=== PATIENT | male | born 1955 | race Caucasian/White ===

== ENCOUNTER 2018-08-14 09:01 | Observation (INO) | payer OTHER, SELFPAY ==
[2018-08-14] VITALS (13 sets, daily range): BP systolic 127–144; BP diastolic 65–80; PULSE 79–99; RESP 16–20; TEMP 36.9–37.9; O2SAT 94–99; BMI 36.8
--- NOTE | 2018-08-14 09:10 | ED_ITS ---
HPI - Extremity Problem General Chief complaint: Extremity Problem,Nontraumatic Stated complaint: redness,pain,swelling rt leg, pt states chills Time Seen by Provider: 08/14/18 09:03 Source: patient Mode of arrival: ambulatory Limitations: no limitations History of Present Illness HPI Narrative: Patient is a 63-year-old male who presents with all right leg pain. It has been ongoing for the last 4 days progressively getting worse. Currently low-grade fever in the ED. Pain in the legs progressively getting worse he has rigors in the ED and cannot get warm. He also has a history of psoriasis and diabetes Related Data Home Medications Medication Instructions Recorded Confirmed allopurinol 300 mg PO QDAY #0 12/29/10 08/14/18 ramipril 10 mg PO BID #0 09/17/11 08/14/18 albuterol sulfate 1 puff INHALATION Q4-6H PRN 08/14/18 08/14/18 carvedilol 12.5 mg PO BID 08/14/18 08/14/18 colchicine 0.6 mg PO DAILY 08/14/18 08/14/18 furosemide 20 mg PO DAILY 08/14/18 08/14/18 glipizide 5 mg PO BID 08/14/18 08/14/18 metformin 500 mg PO BID 08/14/18 08/14/18 Allergies Allergy/AdvReac Type Severity Reaction Status Date / Time beeswax Allergy Severe ANAPHYLAXIS Verified 08/14/18 09:08 codeine Allergy Intermediate HIVES, Verified 08/14/18 09:08 SWELLING Review of Systems Review of Systems All systems reviewed & are unremarkable except as noted in HPI and below Constitutional Reports body ache(s), Reports fever(s) and Denies frequent falls ENT Ears, Nose, Mouth, and Throat: Denies change in voice, Denies dizziness, Denies neck pain and Denies sore throat Cardiovascular Denies chest pain, Denies irregular heart rhythm, Denies lightheadedness, Denies palpitations, Denies dyspnea, Denies dyspnea on exertion and Denies orthopnea Respiratory Denies cough, Denies dyspnea, Denies dyspnea on exertion and Denies wheezing Gastrointestinal Gastrointestinal: Denies abdominal pain, Denies change in bowel habits, Denies diarrhea, Denies nausea and Denies vomiting Musculoskeletal Reports back pain (Chronic), Denies neck pain and Denies numbness Integumentary/Breasts Reports as per HPI, Reports dry skin and Reports erythema Neurologic Denies behavioral changes, Denies confusion, Denies dizziness, Denies frequent falls and Denies numbness Psychiatric Denies behavioral changes and Denies confusion Endocrine Denies palpitations Allergic/Immunologic Denies wheezing PFSH Medical History Diabetes (Chronic) Hyperlipidemia (Chronic) Hypertension (Chronic) Hypothyroid (Chronic) Psoriasis (Chronic) Social History marital status: Smoking Status: Never smoker Exam Initial Vital Signs Initial Vital Signs: Vital Signs Temperature 100.3 F H 08/14/18 09:08 Pulse Rate 99 H 08/14/18 09:08 Respiratory Rate 16 08/14/18 09:08 Blood Pressure 138/80 08/14/18 09:08 Pulse Oximetry 98 08/14/18 09:08 Const General: cooperative and No acute distress Nutritional Appearance: overweight Orientation: alert, awake and oriented x3 Eyes General: appearance normal, both eyes and all related structures Neck Neck: normal visual inspection and full ROM Chest Chest: normal inspection of the chest Resp Effort & Inspection: normal respiratory effort Auscultation: clear to auscultation bilaterally, no rales, no rhonchi and no wheezes Cardio Rate: regular rate Rhythm: regular rhythm Heart Sounds: S1 normal and S2 normal GI Palpation: soft, No firm and No tender Skin General: erythema and warm Other: Sore ice packs noted on both lower extremities however the right 1 is erythematous. He actually is streaking going above the knee into the sun. Non circumferential Neuro General: alert, oriented x3, gait normal and no focal motor deficits Speech: speech normal Extrem General: full ROM, no clubbing, cyanosis or edema, no pedal edema and no calf tenderness Course Orders Ordered: ED Orders 08/14/18 09:15 Blood Culture Stat Complete Blood Count AUTO DIFF Stat Comprehensive Metabolic Panel Stat Lactate (Lactic Acid) Stat Partial Thromboplastin Time Stat Procalcitonin Stat Prothrombin Time INR Stat 08/14/18 10:36 Education, smoking cessation ONGOING 08/14/18 10:40 Consult to Discharge Planning Routine Consult to Occupational Therapy Evaluate & Treat Consult to Physical Therapy Evaluate & Treat 08/15/18 05:00 Complete Blood Count AUTO DIFF DAILY Comprehensive Metabolic Panel DAILY 08/16/18 05:00 Complete Blood Count AUTO DIFF DAILY Comprehensive Metabolic Panel DAILY 08/17/18 05:00 Complete Blood Count AUTO DIFF DAILY Comprehensive Metabolic Panel DAILY Acetaminophen (Tylenol) 650 mg PO Q6HR PRN PRN Reason: As Needed for Fever/Mild Pain Hydrocodone Bitart/Acetaminophen ([place] 5/325) 1 tab PO Q4HR PRN PRN Reason: Pain, Moderate (4-6) Bisacodyl (Dulcolax) 10 mg TN DAILY PRN PRN Reason: Constipation Calcium Carbonate (Tums) 1,000 mg PO Q4HR PRN PRN Reason: Dyspepsia Heparin Sodium (Porcine) (Heparin) 5,000 unit SUBCUT BID ZOE Sodium Chloride (Normal Saline 0.9%) 1,000 mls @ 200 mls/hr IV CONT ZOE Last Infusion: 08/14/18 11:21 Dose: 0 mls/hr Admin: 08/14/18 09:26 Dose: 200 mls/hr Ondansetron HCl (Zofran) 4 mg IV Q8HR PRN PRN Reason: Nausea And Vomiting Pantoprazole Sodium (Protonix) 20 mg PO 0600 [facility] Discontinued Medications Acetaminophen (Tylenol) 650 mg PO NOW ONE Stop: 08/14/18 09:52 Last Admin: 08/14/18 10:17 Dose: 650 mg Vancomycin HCl 1,500 mg/ (Sodium Chloride) 500 mls @ 333.333 mls/hr IV NOW ONE Stop: 08/14/18 09:37 Last Admin: 08/14/18 11:21 Dose: 333.333 mls/hr Ceftriaxone Sodium/Dextrose (Rocephin) 1 gm in 50 mls @ 100 mls/hr IV NOW ONE Stop: 08/14/18 10:05 Last Infusion: 08/14/18 11:20 Dose: 0 mls/hr Admin: 08/14/18 09:54 Dose: 100 mls/hr Vital Signs - 8 hr 08/14/18 09:08 08/14/18 10:17 08/14/18 11:16 Temperature 100.3 F H 100.3 F H Pulse Rate 99 H 96 H Respiratory Rate 16 20 Blood Pressure 138/80 127/67 Pulse Oximetry 98 95 08/14/18 11:29 Temperature 99.2 F Pulse Rate Respiratory Rate Blood Pressure Pulse Oximetry MDM - Extremity (Nontraumatic) Lab Data Attestation: I reviewed the patient's lab results. Result diagrams: 08/14/18 09:15 08/14/18 09:15 Lab Results 08/14/1818 08/14/18 Range/Units 09:15 09:15 09:15 WBC 13.5 H (4.5-11.0) X10^3/uL RBC 4.42 L (4.5-5.9) X10^6/uL Hgb 14.3 (13.5-17.5) g/dL Hct 42.7 (41-53) % MCV 96.5 (80-100) fL MCH 32.2 (26-34) PG MCHC 33.4 (30-36) % RDW 14.9 H (11.6-14.8) % Plt Count 168 (150-400) X10^3/uL Neut % (Auto) 84.3 H (50-75) % Lymph % (Auto) 5.6 L (25-40) % [place] % (Auto) 9.0 (3-14) % Eos % (Auto) 0.6 L (2-4) % Baso % (Auto) 0.5 (0-2) % Neut # (Auto) 38545 H (4028-6644) /uL PT 12.8 H (10.1-12.7) SECONDS INR 1.1 (0.9-1.3) APTT 31 (26.4-36.2) SECONDS Sodium (137-145) mmol/L Potassium (3.4-5.1) mmol/L Chloride (98-107) mmol/L Carbon Dioxide (22-32) mmol/L BUN (9-20) mg/dL Creatinine (0.66-1.25) mg/dL Estimated GFR (>60) mL/min BUN/Creatinine Ratio (6-22) Glucose (80-110) mg/dL Lactate (0.7-2.1) mmol/L Calcium (8.4-10.2) mg/dL Total Bilirubin (0.2-1.3) mg/dL AST (17-59) IU/L ALT (21-72) IU/L Alkaline Phosphatase (38-126) U/L Total Protein (6.3-8.2) g/dL Albumin (3.5-5.0) g/dL Globulin (1.7-4.1) g/dL Albumin/Globulin Ratio (1.0-2.8) Procalcitonin 0.07 (<0.5) ng/mL 08/14/18 08/14/18 Range/Units 09:15 09:15 WBC (4.5-11.0) X10^3/uL RBC (4.5-5.9) X10^6/uL Hgb (13.5-17.5) g/dL Hct (41-53) % MCV (80-100) fL MCH (26-34) PG MCHC (30-36) % RDW (11.6-14.8) % Plt Count (150-400) X10^3/uL Neut % (Auto) (50-75) % Lymph % (Auto) (25-40) % Stafford % (Auto) (3-14) % Eos % (Auto) (2-4) % Baso % (Auto) (0-2) % Neut # (Auto) (0226-2306) /uL PT (10.1-12.7) SECONDS INR (0.9-1.3) APTT (26.4-36.2) SECONDS Sodium 138 (137-145) mmol/L Potassium 4.3 (3.4-5.1) mmol/L Chloride 97 L (98-107) mmol/L Carbon Dioxide 26 (22-32) mmol/L BUN 16 (9-20) mg/dL Creatinine 1.20 (0.66-1.25) mg/dL Estimated GFR > 60.0 (>60) mL/min BUN/Creatinine Ratio 13.3 (6-22) Glucose 178 H (80-110) mg/dL Lactate 2.6 H (0.7-2.1) mmol/L Calcium 9.9 (8.4-10.2) mg/dL Total Bilirubin 1.7 H (0.2-1.3) mg/dL AST 24 (17-59) IU/L ALT 25 (21-72) IU/L Alkaline Phosphatase 62 (38-126) U/L Total Protein 8.0 (6.3-8.2) g/dL Albumin 4.7 (3.5-5.0) g/dL Globulin 3.3 (1.7-4.1) g/dL Albumin/Globulin Ratio 1.4 (1.0-2.8) Procalcitonin (<0.5) ng/mL MDM Narrative Medical decision making narrative: Patient's multiple comorbidities he also has streaking of his right leg concerning for worsening infection. Mild leukocytosis and slightly elevated lactic acid at 2.6. Empirically given Rocephin and vancomycin no history of MRSA, or recent hospitalizations. Patient has been admitted in the past multiple years ago for cellulitis has accepted Discharge Plan Departure Patient Disposition: Admitted As Inpatient Clinical Impression: Cellulitis of leg, right Discharge Date/Time: 08/14/18 11:30 Interventions: ED Discharge Assessment Last Done: 08/14/18 11:16 Admit Date/Time: 08/14/18 10:28 Admit Provider: Prashant Shields
[2018-08-14] MEDS: SODIUM CHLORIDE 0.9% 1,000 ML 200 ML IV (09:26)
[2018-08-14 09:31] LABS: Add Manual Diff / Slide Review NO; Basophils Percent Auto 0.5 % (0-2); Eosinophils Percent Auto 0.6 % (2-4); Hematocrit 42.7 % (41-53); Hemoglobin 14.3 g/dL (13.5-17.5); Lymphocytes Percent Auto 5.6 % (25-40); Mean Corpuscular HGB Conc 33.4 % (30-36); Mean Corpuscular Hemoglobin 32.2 PG (26-34); Mean Corpuscular Volume 96.5 fL (80-100); Neutrophils Absolute Auto 11400 /uL (3000-5900); Neutrophils Percent Auto 84.3 % (50-75); Platelet Count 168 X10^3/uL (150-400); Red Blood Cell Count 4.42 X10^6/uL (4.5-5.9); Red Cell Distribution Width 14.9 % (11.6-14.8); White Blood Cell Count 13.5 X10^3/uL (4.5-11.0)
[2018-08-14 09:37] LABS: INR 1.1 (0.9-1.3); Prothrombin Time 12.8 SECONDS (10.1-12.7)
[2018-08-14 09:40] LABS: PTT Partial Thromboplastin Tim 31 SECONDS (26.4-36.2)
[2018-08-14 09:46] LABS: Alanine Aminotransferase 25 IU/L (21-72); Albumin 4.7 g/dL (3.5-5.0); Albumin Globulin Ratio 1.4 (1.0-2.8); Alkaline Phosphatase 62 U/L (38-126); Aspartate Aminotransferase 24 IU/L (17-59); BUN Creatinine Ratio 13.3 (6-22); Bilirubin Total 1.7 mg/dL (0.2-1.3); Blood Urea Nitrogen 16 mg/dL (9-20); Calcium 9.9 mg/dL (8.4-10.2); Carbon Dioxide 26 mmol/L (22-32); Chloride 97 mmol/L (98-107); Estimated Glomerular Filt Rate > 60.0 mL/min (>60); Globulin 3.3 g/dL (1.7-4.1); Glucose 178 mg/dL (80-110); HEMOLYSIS < 15 (0-50); Potassium 4.3 mmol/L (3.4-5.1); Sodium 138 mmol/L (137-145)
[2018-08-14 09:47] LABS: Lactate (Lactic Acid) 2.6 mmol/L (0.7-2.1)
[2018-08-14] MEDS: CEFTRIAXONE 1 GM/50 ML FROZ.PIGGY IV (09:54)
[2018-08-14 10:02] LABS: Procalcitonin 0.07 ng/mL (<0.5)
[2018-08-14] MEDS: ACETAMINOPHEN 325 MG TABLET 650 MG PO (10:17)
--- NOTE | 2018-08-14 10:18 | PC.NURSE ---
Pt's IV pulled back as not running but has blood return. Attempted another IV start but pt is very difficult IV start.
--- NOTE | 2018-08-14 11:05 | PC.NURSE ---
IV attempt to rt upper arm. Pulled out in error when repositioning pt
[2018-08-14] MEDS: VANCOMYCIN 1,500 MG in SODIUM CHLORIDE 0.9% 500 ML 333.333 ML IV (11:21)
--- NOTE | 2018-08-14 12:50 | P.HP_ITS ---
History of Present Illness Date Patient Seen: 08/14/18 Time Patient Seen: 12:42 Chief complaint: redness,pain,swelling rt leg, pt states chills Narrative: THIS IS A VERY PLEASANT 63 YO MALE WITH A PAST MEDICAL HX SIGNIFICANT FOR DM2, HTN AND HYPOTHYROIDISM WELL GOUT - PATIENT WAS REFERRED FOR ADMISSION DUE TO REPORTED FEVER AND LOWER EXT PAIN WELL REDNESS - PATIENT REPORTED THE SYMPTOMS STARTED ABUT 4 DAYS AGO OR SO AND WORSENING - HE DESCRIBED REDNESS AND SWELLING TO THE RT LOWER EXT WITHOUT ANY DRAINANGE - HE REPORTED FEVER BUT DENIED ANY CHILLS/NAUSEA/VOMITING OR DIARRHEA - HE DENIED SWIMMING IN STANDING [place]WSON; NO TRAVELS - NO OTHER COMPLAINTS Patient History Medical History Diabetes (Chronic) Hyperlipidemia (Chronic) Hypertension (Chronic) Hypothyroid (Chronic) Psoriasis (Chronic) Family & Social History Family History: Reviewed 08/14/18 by Prashant Shields DO Tobacco & Substance use: Smoking Status Never smoker Substance Use Type does not use Meds Home Medications Medication Instructions Recorded Confirmed Type allopurinol 300 mg PO QDAY #0 12/29/10 08/14/18 History ramipril 10 mg PO BID #0 09/17/11 08/14/18 History albuterol sulfate 1 puff INHALATION Q4-6H PRN 08/14/18 08/14/18 History carvedilol 12.5 mg PO BID 08/14/18 08/14/18 History colchicine 0.6 mg PO DAILY 08/14/18 08/14/18 History furosemide 20 mg PO DAILY 08/14/18 08/14/18 History glipizide 5 mg PO BID 08/14/18 08/14/18 History metformin 500 mg PO BID 08/14/18 08/14/18 History Allergies Allergy/AdvReac Type Severity Reaction Status Date / Time beeswax Allergy Severe ANAPHYLAXIS Verified 08/14/18 09:08 codeine Allergy Intermediate HIVES, Verified 08/14/18 09:08 SWELLING Review of Systems Review of Systems All systems reviewed & are unremarkable except as noted in HPI and below Exam Vital Signs (past 8 hours): - 08/14/18 09:08 08/14/18 10:17 08/14/18 11:16 Temperature 100.3 F H 100.3 F H Pulse Rate 99 H 96 H Respiratory Rate 16 20 Blood Pressure 138/80 127/67 Pulse Oximetry 98 95 08/14/18 11:29 Temperature 99.2 F Pulse Rate Respiratory Rate Blood Pressure Pulse Oximetry Oxygen Delivery Method Room Air Narrative Exam Narrative: NO ACUTE DISTRESS. PATIENT IS ALERT ORIENTED X3. VITAL SIGNS STABLE HEAD ATRAUMATIC NORMOCEPHALIC NECK : SUPPLE WITHOUT ADENOPATHY NO CAROTID BRUITS EYE: EOMI, PERRLA, NORMAL CONJUNCTIVA; NO JAUNDICE CHEST: REGULAR RATE. NO RUBS. PMI IS NON DISPLACED. NO MURMURS; NORMAL S1- S2 PULMONARY: DECREASED BS OVER THE BASES. MILD BIBASILAR CRACKLES NOTED; NO INCREASED DULLNESS TO PERCUSSION ABDOMEN: OBESES; BUT SOFT. NONTENDER. NONDISTENDED. BOWEL SOUNDS ARE PRESENT IN ALL 4 QUADRANTS. NO MASS. EXTREMITIES: 2+ EDEMA. NON PITTING. CHRONIC SKIN CHANGES; REDNESS ; PSORIATIC PLAQUES NEURO: CRANIAL NERVES 2-12 GROSSLY INTACT. NO FOCAL NEUROLOGICAL DEFICIT NOTED. MSK: NORMAL RANGE OF MOTION FOR AGE. NO JOINT EFFUSION. SKIN: Y; PSORIASIS PLAQUES; NO ECCHYMOSIS. . GOOD TURGOR.; : NORMAL EXTERNAL GENITALIA. PSYCH : APPROPRIATE MOOD AND AFFECT. ALERT AWAKE ORIENTED X3 Objective Labs Result Diagrams: 08/14/18 09:15 08/14/18 09:15 Labs: Laboratory Results - last 24 hr 08/14/18 08/14/18 08/14/18 09:15 09:15 09:15 WBC 13.5 H RBC 4.42 L Hgb 14.3 Hct 42.7 MCV 96.5 MCH 32.2 MCHC 33.4 RDW 14.9 H Plt Count 168 Neut % (Auto) 84.3 H Lymph % (Auto) 5.6 L [place] % (Auto) 9.0 Eos % (Auto) 0.6 L Baso % (Auto) 0.5 Neut # (Auto) 74199 H PT 12.8 H INR 1.1 APTT 31 Sodium Potassium Chloride Carbon Dioxide BUN Creatinine Estimated GFR BUN/Creatinine Ratio Glucose Lactate Calcium Total Bilirubin AST ALT Alkaline Phosphatase Total Protein Albumin Globulin Albumin/Globulin Ratio Procalcitonin 0.07 08/14/18 08/14/18 09:15 09:15 WBC RBC Hgb Hct MCV MCH MCHC RDW Plt Count Neut % (Auto) Lymph % (Auto) [place] % (Auto) Eos % (Auto) Baso % (Auto) Neut # (Auto) PT INR APTT Sodium 138 Potassium 4.3 Chloride 97 L Carbon Dioxide 26 BUN 16 Creatinine 1.20 Estimated GFR > 60.0 BUN/Creatinine Ratio 13.3 Glucose 178 H Lactate 2.6 H Calcium 9.9 Total Bilirubin 1.7 H AST 24 ALT 25 Alkaline Phosphatase 62 Total Protein 8.0 Albumin 4.7 Globulin 3.3 Albumin/Globulin Ratio 1.4 Procalcitonin Assessment & Plan Plan: Assessment/Plan Narrative: IMPRESSION AND PLAN POSS VENOUS STASIS WITH DERMATITIS VS MILD CELLULITIS TO RLE; CAUSE UNCLEAR; DC VANCO AND ROCEPHIN AFTER ONE DOSE; START ON CLINDA FOR STREP COVERAGE AND LEVAQUIN; DAILY CBC; CPK AND CRP LEVEL TODAY; URIC ACID LEVEL WELL; EMILY ALSO EVAL FOR PAD AND DVT WITH DUPPLEX AND DOPPLER OF THE LOWER EXT. LEUKOCYTOSIS; DUE TO ABOVE; DAILY LABS POSS SIRS VS SEPSIS POA; IVF BOLUS INDICATED; ABX ORDERED; WATCH VITAL ORGANS CLOSELY HYPONATREMIA; MILD; MONITOR FOR NOW; DAILY LABS ELEVATE LACTATE; FOLLOW CLOSELY DM2; RESTART ON HOME MEDS; ISS; STRICT BG HYPOTHYROIDISM; RESTART ON HOME MEDS GOUT; URATE LEVEL; RESTART ON HOME MEDS HTN PER HX; MONITOR ON HOME AND PRN MEDS DURATION OF STAY 2-3 DAYS
[2018-08-14 13:25] LABS: Reflexed Lactate in 2 Hours Y
--- NOTE | 2018-08-14 14:15 | PC.NURSE ---
Pt admtted from ER for cellulitus of the right lower extremity. Pt is diabetic with peripheral neuropathy bilat LEs, with tingling, and painful sensations. Also has psoriasis in scattered patches over mostly right LE and medial aspect of left upper calf. ALso on lower abdominal region. Small open area on left posterior calf, related to cellulitus. Pt is alert and oriented. Using walker to transfer. Can hobble to bathroom but suggest use urinal for now. Pt reports pain at 4/10 but does not like to take narcotics and so declined vicodin at this time. Currently having PICC line placed. Came up from ER with Vanco hanging but IV in left AC unstable, therefore not infused. Order from hospitalist to infuse this one dose of Vanco once Picc line placed then continue with antibiotics.
[2018-08-14] MEDS: HEPARIN 5,000 UNIT/ML VIAL 5000 UNIT SUBCUT ×2 (14:51→21:03)
[2018-08-14 15:01] LABS: Lactate 2HR (Lactic Acid Rflx) 2.6 mmol/L (0.7-2.1)
[2018-08-14 15:06] LABS: Creatine Kinase 130 U/L (55-170)
--- NOTE | 2018-08-14 15:15 | PT.IIE ---
Medical History (Last Reviewed 08/14/18 @ 12:45 by Prashant Shields DO) Diabetes (Chronic) Hyperlipidemia (Chronic) Hypertension (Chronic) Hypothyroid (Chronic) Psoriasis (Chronic) Physical Therapy Inpatient Evaluation/Re-Eval M1 PT/OT-IP Prior Functional Status Start: 08/14/18 15:31 Freq: NEEDED Status: Active Protocol: Document 08/14/18 15:15 [facility] (Rec: 08/14/18 15:46 [facility] [id number]) Medical Review Prior Functional Status Medical History Reviewed Yes Mobility and Gait indep. community ambulation without device Activities of Daily Living and IADL's indep. I/ADLs Social History Household Members spouse Living Arrangements House Number of Floors (Floors) One Floor Number of Stairs To Enter/Railing? no steps to enter/exit Home Environment Standard Height Toilet Walk in Shower Home Equipment Straight Cane Additional Social History Comment [place] with . 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 Pt with fever, BLE pain and redness, presented to the ER, admitted for possible venous stasis dermatitis vs cellullitis. M2 PT-IP Current Condition Start: 08/14/18 15:31 Freq: NEEDED Status: Active Protocol: Document 08/14/18 15:15 [facility] (Rec: 08/14/18 15:46 [facility] [id number]) Physical Therapy Current Condition Current Condition Evaluation Date 08/14/18 Treatment Diagnosis redness/pain/swelling BLE, impaired mobility and activity tolerance M3 PT-IP Subjective Start: 08/14/18 15:31 Freq: NEEDED Status: Active Protocol: Document 08/14/18 15:15 [facility] (Rec: 08/14/18 15:46 [facility] [id number]) Subjective Physical Therapy Visit Type Type Initial Evaluation Visit Start Time 14:50 Visit Stop Time 15:15 Total Visit Minutes 20 Number of CRTTS Visits 0 Physical Therapy Visit Comments Patient Comments pt reports that he uses a cane only sometimes, most of the time no AD. Patient Goals decrease pain M4 PT-IP Mobility and Gait Start: 08/14/18 15:31 Freq: NEEDED Status: Active Protocol: Document 08/14/18 15:15 [facility] (Rec: 08/14/18 15:46 [facility] [id number]) PT-Bed Mobility Assessment Supine to Sit Supine to Sit Independent Sit to Supine Sit to Supine Independent Scooting Scooting to Edge of Bed Independent PT-Transfer Assessment Sit to and From Stand Sit to and from Stand Independent Equipment Transfer Assistive Device None Transfers Transfer Destination Bed Transfer Technique Stand Step Pivot Transfer Ability Level of Assist Standby Assistance Comments Mobility Comments politely refused gait belt. Gait Assessment Gait Gait Assistance Required: Standby Assistance Distance (Feet) 150 Assistive Devices Assistive Device None Gait Deviations General Gait Pattern Antalgic Decreased Stride Length Wide Based Gait Factors Limiting Gait Function Factors Limiting Gait Function Decreased Activity Tolerance Pain Comments Gait Comments politely refused gait belt. IV pole used by pt during gait. Fatigued after 150 ft of gait. PT-Balance Assessment Sitting Balance and Reactions Static Sitting Balance Ability Good Dynamic Sitting Balance Ability Good Standing Balance and Reactions Static Standing Balance Ability Good Dynamic Standing Balance Ability Good Device Used IV pole M5 PT-IP Objective Assessments Start: 08/14/18 15:31 Freq: NEEDED Status: Active Protocol: Document 08/14/18 15:15 [facility] (Rec: 08/14/18 15:46 [facility] [id number]) Orientation Orientation/Cognition Level of Alertness Alert Orientation Name Age Birthday Month Date Year Day of Week Place Situation Strength Lower Extremity Strength Assessment Within Functional Limits Coordination Assessment Gross Coordination Gross Coordination WNL M6 PT-IP Treatment Start: 08/14/18 15:31 Freq: NEEDED Status: Active Protocol: Document 08/14/18 15:15 [facility] (Rec: 08/14/18 15:46 [facility] [id number]) Physical Therapy Treatment Education Education Provided Safety M7 PT-IP Assessment and Plan Start: 08/14/18 15:31 Freq: NEEDED Status: Active Protocol: Document 08/14/18 15:15 [facility] (Rec: 08/14/18 15:46 [facility] [id number]) PT Summary Assessment and Plan Potential Rehabilitation Potential Good Status of Condition at Evaluation Stable Summary Impairments Pain Gait Activity Tolerance Assessment Summary Pt able to ambulate using only the IV pole for stability. He does demonstrate antalgic gait bilaterally, but improved step length after ~25 ft of ambulation. He is able to hold a conversation during entirety of gait without SOB, but LEs are fatigued at the end of session. Pt would greatly benefit from multiple walks during the day, and is safe to perform with nursing staff using a FWW. Attempt gait 3x/day with FWW with nursing, and progression of gait with physical therapy without an assistive device or less restrictive device (i.e. SPC). Goals Gait Goal Independent Cane Gait Distance 300 Days to Meet Goals 2 Frequency of Treatment Frequency Of Treatment Once a Day Treatment Plan Physical Therapy Treatment Plan Gait Training Therapeutic Exercise Other Recommendations and Next Treatment gait with SPC, progress Focus distance to improve activity tolerance. Recommendations To Nursing Amount of Assist Needed 1 Person Assist Discharge Recommendations PT Discharge Recommendations Home
[2018-08-14 15:18] LABS: C-Reactive Protein Quant 13.4 mg/dL (<1.0)
--- NOTE | 2018-08-14 16:13 | PC.NURSE ---
Addendum entered by Kenna Hagan R.N. 08/14/18 22:47: Pt positions self in bed independently. No signs of distress or discomfort. Original Note: Addendum entered by Kenna Hagan R.N. 08/14/18 21:25: Pt requests vicodin for headache 12/14. This was given with snack. Pt reports good relief with this intervention. Original Note: Addendum entered by Kenna Hagan R.N. 08/14/18 17:24: Pt's single dose vancomycin now infused. Clindamycin and Levaquin hung following this infusion. Pt taking diet well. Original Note: Pt resting quietly in bed watching television. Inquired of pt if experiencing pain and pt denies although pt does grunt with movement of RLE. Also c/o headache with cough. Discussed with pt pain medications and pt is emphatic about not wanting to use any narcotics. Discussed with pt use of tylenol and pt declines. Discussed with pt use of NSAIDS and pt replies has been advised by PCP not to use d/t kidney function. Offered ice pack to head. Repeated to patient can work with pt and MD to obtain effect pain management. Pt currently refuses any pain medications stating at one time in life following back injury became addicted to pain meds. Admits to areas of numbness to LLE following back injury years ago and peripheral neuropathy to RLE. Pedal pulses present with doppler X 2 L > R. Pt is able to move all extremities independently. Quarter sized scabbed and open area to right posterior lower extremity currently not draining. Cleansed with normal saline, dried with 4 x 4's and placed small allevyn gentle border dressing. Encouraged pt to call for needs/wants. Vancomycin infusing as ordered to midclavicular line LUE.
[2018-08-14] MEDS: METFORMIN HCL 500 MG TABLET 1000 MG PO (17:11)
[2018-08-14] MEDS: CLINDAMYCIN 600 MG/50 ML PIGGYBACK 50 MG IV (17:11)
[2018-08-14] MEDS: levoFLOXacin 750 MG/150 ML PIGGYBACK 100 MG IV (18:25)
[2018-08-14] MEDS: HYDROCODONE/ACET 5/325 TABLET 1 TAB PO (20:18)
[2018-08-14] MEDS: CARVEDILOL 25 MG TABLET PO (21:02)
[2018-08-14] MEDS: RAMIPRIL 5 MG CAPSULE 10 MG PO (21:02)
[2018-08-14] MEDS: SODIUM CHLORIDE 0.9% FLUSH 10 ML IV (21:03)
--- NOTE | 2018-08-15 | DI.US.S_ITS ---
PROCEDURE: US ARTERIAL DUPLEX LE BI INDICATIONS: PAD TECHNIQUE: Color and pulse Doppler interrogation was performed of both lower extremity arterial systems, with image documentation. COMPARISON: None. FINDINGS: Right lower extremity: Common femoral artery: 119 cm/sec, with triphasic flow. Deep femoral artery: 38 cm/sec, with triphasic flow. Proximal superficial femoral artery: 102 cm/sec, with triphasic flow. Mid superficial femoral artery: 87 cm/sec, with triphasic flow. Distal superficial femoral artery: 66 cm/sec, with biphasic flow. Popliteal artery: 91 cm/sec, with biphasic flow. Posterior tibial artery: 67 cm/sec, with biphasic flow. Anterior tibial artery/dorsalis pedis: 34 cm/sec, with biphasic flow. Bland-scale imaging description: No hemodynamically significant stenosis is visualized within the right lower extremity arteries. Left lower extremity: Common femoral artery: 160 cm/sec, with triphasic flow. Deep femoral artery: 92 cm/sec, with biphasic flow. Proximal superficial femoral artery: 119 cm/sec, with triphasic flow. Mid superficial femoral artery: 87 cm/sec, with triphasic flow. Distal superficial femoral artery: 57 cm/sec, with biphasic flow. Popliteal artery: 58 cm/sec, with biphasic flow. Posterior tibial artery: 83 cm/sec, with biphasic flow. Anterior tibial artery/dorsalis pedis: Not visualized Bland-scale imaging description: No hemodynamically significant stenosis is visualized within the left lower extremity arteries. IMPRESSION: 1. No hemodynamically significant stenosis of the bilateral lower extremity arteries. However, if further characterization is warranted, CT angiogram with bilateral lower extremity runoff could be used to evaluate for occult stenosis. Dictated by: Rhoda Goldberg M.D. on 08/15/2018 at 13:38 Approved by: Rhoda Goldberg M.D. on 08/15/2018 at 13:42
--- NOTE | 2018-08-15 | DI.US.S_ITS ---
PROCEDURE: US PERIPH VENOUS LOW EXTREM RT INDICATIONS: SWELLING TECHNIQUE: Real-time imaging, as well as color and pulse Doppler interrogation, were performed of the lower extremity deep veins from the inguinal ligament to the popliteal fossa. COMPARISON: None. FINDINGS: The deep veins are normally compressible, and free of intraluminal thrombus. Color and pulse Doppler demonstrate normal phasic intraluminal flow. There is normal augmentation response to distal compression maneuver. IMPRESSION: No evidence of right lower extremity deep vein thrombosis. Dictated by: Abhay Cedeno M.D. on 08/15/2018 at 10:46 Approved by: Abhay Cedeno M.D. on 08/15/2018 at 10:47
[2018-08-15 01:12] VITALS: O2SAT 97
[2018-08-15] MEDS: CLINDAMYCIN 600 MG/50 ML PIGGYBACK 50 MG IV ×2 (01:28→09:21)
[2018-08-15 03:47] VITALS: BP 114/63; PULSE 73; RESP 19; TEMP 36.6; O2SAT 96
[2018-08-15] MEDS: SODIUM CHLORIDE 0.9% 1,000 ML 75 ML IV (04:49)
--- NOTE | 2018-08-15 04:56 | PC.NURSE ---
Pt is A and O x 4, VSS. Redness and edema did not increase this shift. Pt rates pain at 2/10 and declines pain medication. Tolerating IV ABOs well.
[2018-08-15] MEDS: PANTOPRAZOLE 20 MG TABLET PO (06:04)
[2018-08-15 06:22] LABS: Add Manual Diff / Slide Review NO; Basophils Percent Auto 0.5 % (0-2); Eosinophils Percent Auto 2.8 % (2-4); Hematocrit 36.3 % (41-53); Hemoglobin 12.2 g/dL (13.5-17.5); Lymphocytes Percent Auto 12.6 % (25-40); Mean Corpuscular HGB Conc 33.6 % (30-36); Mean Corpuscular Hemoglobin 32.3 PG (26-34); Mean Corpuscular Volume 96.1 fL (80-100); Monocytes Percent Auto 14.9 % (3-14); Neutrophils Absolute Auto 4700 /uL (3000-5900); Neutrophils Percent Auto 69.2 % (50-75); Platelet Count 134 X10^3/uL (150-400); Red Blood Cell Count 3.78 X10^6/uL (4.5-5.9); White Blood Cell Count 6.7 X10^3/uL (4.5-11.0)
[2018-08-15 06:30] LABS: Alanine Aminotransferase 25 IU/L (21-72); Albumin 3.7 g/dL (3.5-5.0); Albumin Globulin Ratio 1.3 (1.0-2.8); Alkaline Phosphatase 54 U/L (38-126); Aspartate Aminotransferase 17 IU/L (17-59); Bilirubin Total 1.2 mg/dL (0.2-1.3); Blood Urea Nitrogen 16 mg/dL (9-20); Calcium 8.9 mg/dL (8.4-10.2); Carbon Dioxide 25 mmol/L (22-32); Chloride 103 mmol/L (98-107); Estimated Glomerular Filt Rate > 60.0 mL/min (>60); Globulin 2.8 g/dL (1.7-4.1); Glucose 129 mg/dL (80-110); HEMOLYSIS < 15 (0-50); Potassium 3.7 mmol/L (3.4-5.1); Sodium 139 mmol/L (137-145); Total Protein 6.5 g/dL (6.3-8.2)
[2018-08-15 07:45] VITALS: BP 121/56; PULSE 67; RESP 67; O2SAT 98
[2018-08-15] MEDS: ALLOPURINOL 300 MG TABLET PO (09:23)
[2018-08-15] MEDS: GLIMEPIRIDE 2 MG TABLET PO (09:23)
[2018-08-15] MEDS: METFORMIN HCL 500 MG TABLET 1000 MG PO (09:23)
[2018-08-15] MEDS: CARVEDILOL 25 MG TABLET PO (09:24)
[2018-08-15] MEDS: FUROSEMIDE 20 MG TABLET PO (09:24)
[2018-08-15] MEDS: RAMIPRIL 5 MG CAPSULE 10 MG PO (09:24)
[2018-08-15] MEDS: HEPARIN 5,000 UNIT/ML VIAL 5000 UNIT SUBCUT (09:25)
--- NOTE | 2018-08-15 10:24 | PT.IPTN ---
Physical Therapy Treatment Note M2 PT-IP Current Condition Start: 08/14/18 15:31 Freq: NEEDED Status: Active Protocol: Document 08/14/18 15:15 RCC (Rec: 08/14/18 15:46 RCC [id number]) Physical Therapy Current Condition Current Condition Evaluation Date 08/14/18 Treatment Diagnosis redness/pain/swelling BLE, impaired mobility and activity tolerance M3 PT-IP Subjective Start: 08/14/18 15:31 Freq: NEEDED Status: Active Protocol: Document 08/15/18 10:00 AMB (Rec: 08/15/18 10:24 AMB [id number]) Subjective Physical Therapy Visit Type Type Treatment Note Visit Start Time 09:45 Visit Stop Time 10:10 Total Visit Minutes 25 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 M4 PT-IP Mobility and Gait Start: 08/14/18 15:31 Freq: NEEDED Status: Active Protocol: Document 08/15/18 10:00 AMB (Rec: 08/15/18 10:24 AMB [id number]) PT-Transfer Assessment Sit to and From Stand Sit to and from Stand Independent Gait Assessment Gait Gait Assistance Required: Standby Assistance Distance (Feet) 350 Gait Deviations General Gait Pattern Decreased Stride Length Wide Based Gait Comments Gait Comments politely refused gait belt. IV pole used by pt during gait. Fatigued after 150 ft of gait. M5 PT-IP Objective Assessments Start: 08/14/18 15:31 Freq: NEEDED Status: Active Protocol: Document 08/14/18 15:15 RCC (Rec: 08/14/18 15:46 RCC [id number]) Orientation Orientation/Cognition Level of Alertness Alert Orientation Name Age Birthday Month Date Year Day of Week Place Situation Strength Lower Extremity Strength Assessment Within Functional Limits Coordination Assessment Gross Coordination Gross Coordination WNL M6 PT-IP Treatment Start: 08/14/18 15:31 Freq: NEEDED Status: Active Protocol: Document 08/14/18 15:15 RCC (Rec: 08/14/18 15:46 RCC [id number]) Physical Therapy Treatment Education Education Provided Safety M7 PT-IP Assessment and Plan Start: 08/14/18 15:31 Freq: NEEDED Status: Active Protocol: Document 08/15/18 10:00 AMB (Rec: 12/10/18 10:24 AMB [id number]) PT Summary Assessment and Plan Summary Assessment Summary Pt ambulating with IV pole. Antalgic gait, possibly more due to back pain today. Continue to have nursing ambulate with patient with FWW and PT can work towards independent gait (or with SPC) . Goals Gait Goal Independent Cane Gait Distance 300 Days to Meet Goals 2 Frequency of Treatment Frequency Of Treatment Once a Day Treatment Plan Physical Therapy Treatment Plan Gait Training Therapeutic Exercise Other Recommendations and Next Treatment gait with SPC, progress Focus distance to improve activity tolerance. Recommendations To Nursing Amount of Assist Needed Standby Assistance Discharge Recommendations PT Discharge Recommendations Home
[2018-08-15 10:41] VITALS: O2SAT 98
[2018-08-15 11:50] VITALS: BP 127/62; PULSE 68; RESP 18; TEMP 36.4; O2SAT 96
--- NOTE | 2018-08-15 14:40 | PM.DS.1 ---
History of Present Illness Chief complaint: redness,pain,swelling rt leg, pt states chills Narrative: THIS IS A VERY PLEASANT 63 YO MALE WITH A PAST MEDICAL HX SIGNIFICANT FOR DM2, HTN AND HYPOTHYROIDISM WELL GOUT - PATIENT WAS REFERRED FOR ADMISSION DUE TO REPORTED FEVER AND LOWER EXT PAIN WELL REDNESS - PATIENT REPORTED THE SYMPTOMS STARTED ABUT 4 DAYS AGO OR SO AND WORSENING - HE DESCRIBED REDNESS AND SWELLING TO THE RT LOWER EXT WITHOUT ANY DRAINANGE - HE REPORTED FEVER BUT DENIED ANY CHILLS/NAUSEA/VOMITING OR DIARRHEA - HE DENIED SWIMMING IN STANDING DAWSON; NO TRAVELS - NO OTHER COMPLAINTS Discharge Providers Date of admission: 08/14/18 10:28 Primary care physician: Skip Diaz MD Consults: 08/14/18 10:40 Consult to Discharge Planning Routine Comment: Consult to Occupational Therapy Evaluate & Treat Comment: Physician Instructions: Evaluate and treat Consult to Physical Therapy Evaluate & Treat Comment: Physician Instructions: Evaluate and Treat Discharge provider: Prashant Shields DO Discharge Date: 08/15/18 Summary Discharge Diagnosis: SMALL WOUND TO RLE; WITH ASSOCIATED CELLULITIS ; RESOLVING PAD/PVD RULED OUT DVT RULED OUT LEUKOCYTOSIS ; RESOLVED GOUT; AT BASELINE Hospital Course: PATIENT ADMITTED WITH CELLULITIS OF TH RLE; ALSO REPORTED CHILLS AND BODY ACHE U/S WORK UPS ARE NEG FOR PAD/DVT AND HIS SX HAVE RESOLVED - WE SUSPECT THAT HIS BODY-ACHING AND MALAISE ARE FROM ONE OF HIS HOME INJECTION AND THIS WILL BE REPORTED TO HIS PHYSICIAN - HIS CELLULITIS APPEARS IMPROVED; AND WILL BE DC ON ORAL ABX WITH DRESSING CHANGES ORDERED - ADDITIONAL MANAGEMENT PER OUTPATIENT PROVIDERS Status at Discharge Cognitive/behavioral status at discharge: STABLE T O HOME Functional status at discharge: independent ambulation Overall status at discharge: patient is back to baseline Time Spent with Patient Greater than 30 minutes Exam Vital Signs (past 8 hours): - 08/15/18 07:45 08/15/18 10:41 08/15/18 11:50 Temperature 97.5 F L Pulse Rate 67 68 Respiratory Rate 67 H 18 Blood Pressure 121/56 L 127/62 Pulse Oximetry 98 98 96 Oxygen Delivery Method Room Air Oxygen Flow Rate 0 Narrative Exam Narrative: NO ACUTE DISTRESS. PATIENT IS ALERT ORIENTED X3. VITAL SIGNS STABLE HEAD ATRAUMATIC NORMOCEPHALIC NECK : SUPPLE WITHOUT ADENOPATHY NO CAROTID BRUITS EYE: EOMI, PERRLA, NORMAL CONJUNCTIVA; NO JAUNDICE CHEST: REGULAR RATE. NO RUBS. PMI IS NON DISPLACED. NO MURMURS; NORMAL S1-S2 PULMONARY: DECREASED BS OVER THE BASES. MILD BIBASILAR CRACKLES NOTED; NO INCREASED DULLNESS TO PERCUSSION ABDOMEN: OBESES; BUT SOFT. NONTENDER. NONDISTENDED. BOWEL SOUNDS ARE PRESENT IN ALL 4 QUADRANTS. NO MASS. EXTREMITIES: 2+ EDEMA. NON PITTING. CHRONIC SKIN CHANGES; REDNESS ; PSORIATIC PLAQUES NEURO: CRANIAL NERVES 2-12 GROSSLY INTACT. NO FOCAL NEUROLOGICAL DEFICIT NOTED. MSK: NORMAL RANGE OF MOTION FOR AGE. NO JOINT EFFUSION. SKIN: Y; PSORIASIS PLAQUES; NO ECCHYMOSIS. . GOOD TURGOR.; : NORMAL EXTERNAL GENITALIA. PSYCH : APPROPRIATE MOOD AND AFFECT. ALERT AWAKE ORIENTED X3 Objective Labs Result Diagrams: 08/15/18 05:23 08/15/18 05:23 Labs: Laboratory Results - last 24 hr 08/14/18 08/14/18 08/15/18 14:25 14:25 05:23 WBC 6.7 D RBC 3.78 L Hgb 12.2 L Hct 36.3 L MCV 96.1 MCH 32.3 MCHC 33.6 RDW 15.0 H Plt Count 134 L Neut % (Auto) 69.2 Lymph % (Auto) 12.6 L Fillmore % (Auto) 14.9 H Eos % (Auto) 2.8 Baso % (Auto) 0.5 Neut # (Auto) 4700 Sodium Potassium Chloride Carbon Dioxide BUN Creatinine Estimated GFR BUN/Creatinine Ratio Glucose Lactate 2.6 H Uric Acid 5.0 Calcium Total Bilirubin AST ALT Alkaline Phosphatase Total Creatine Kinase 130 C-Reactive Protein 13.4 H Total Protein Albumin Globulin Albumin/Globulin Ratio 08/15/18 05:23 WBC RBC Hgb Hct MCV MCH MCHC RDW Plt Count Neut % (Auto) Lymph % (Auto) Fillmore % (Auto) Eos % (Auto) Baso % (Auto) Neut # (Auto) Sodium 139 Potassium 3.7 Chloride 103 Carbon Dioxide 25 BUN 16 Creatinine 1.00 Estimated GFR > 60.0 BUN/Creatinine Ratio 16.0 Glucose 129 H Lactate Uric Acid Calcium 8.9 Total Bilirubin 1.2 AST 17 ALT 25 Alkaline Phosphatase 54 Total Creatine Kinase C-Reactive Protein Total Protein 6.5 Albumin 3.7 Globulin 2.8 Albumin/Globulin Ratio 1.3 Discharge Plan Discharge Plan Patient Disposition: Home Discharge comment: ACT LAURA CARDIAC DIET F/U WITH OCO 3-10 DAYS KEEP RLE CLEAN ; OK TO SHOWER CHANGE DRESSING BID X 7 DAYS; USE CLEAN TECHNICS ; USE TELFA GAUZE ; 4X4 ; WRAP WITH KERLIX AND SECURE WITH TAPES Discharge Med Rec/Prescriptions Prescriptions: New doxycycline hyclate 100 mg tablet 100 mg PO BID 7 Days Qty: 14 RF: 0 mupirocin calcium [Bactroban] 2 % cream 1 applictn TOP BID Qty: 15 RF: 0 Continue allopurinol 300 MG tablet 300 mg PO QDAY Qty: 0 RF: 0 ramipril 10 MG capsule 10 mg PO BID Qty: 0 RF: 0 albuterol sulfate 90 mcg/actuation Hfa Aerosol Inhaler 1 puff INHALATION Q4-6H PRN (Reason: Dyspnea) RF: 0 colchicine 0.6 mg Capsule 0.6 mg PO DAILY RF: 0 metformin 500 mg Tablet 1,000 mg PO BID RF: 0 carvedilol 12.5 mg Tablet 25 mg PO BID RF: 0 furosemide 20 mg Tablet 20 mg PO DAILY RF: 0 glimepiride 2 mg Tablet 2 mg PO QAM RF: 0 levothyroxine 0.075 mcg 75 mcg PO QAM RF: 0 atorvastatin 80 mg tablet 40 mg PO BEDTIME RF: 0 Provider Discharge Instructions Diet: Low-fat and Low-cholesterol Skin/Wound/Dressing Care Report to your healthcare provider any signs of infection, such as:: chills, fever, night sweats, increased pain, unusual drainage and unusual redness Discharge Data Primary Care Provider: Skip Diaz Attending Provider: Prashant Shiedls Admit Date/Time: 08/14/18 10:28 Quality VTE Deep Vein Thrombosis/Pulmonary Embolism Present on Admission: No
--- NOTE | 2018-08-15 14:45 | OT.IP.TRT ---
Occupational Therapy Treatment Note M3 OT- IP Subjective and Pain Start: 08/15/18 17:01 Freq: Status: Active Protocol: Document 08/15/18 14:45 PJM (Rec: 08/15/18 17:04 PJM [id number]) OT- Subjective Occupational Therapy Visit Type Type Administrative Note Visit Start Time 14:45 Visit Stop Time 14:50 Total Visit Minutes 5 Notes OT referral received. Brief ADL interviex completed with pt and . Pt SBA to indep with all self care tasks and functional mobility in room, except having difficulty donning R sock due to distal RLE pain and edema. Pt has sock aid at home and can also assist PRN. 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 No OT goals identified for this admission. No charge.
--- NOTE | 2018-08-15 15:33 | PC.NURSE ---
Pt seen by MD - discharged home on PO antibiotics. DC information given and scripts. IVs removed.
--- NOTE | 2018-08-15 15:41 | CM.DANOTE ---
Discharge Planning/Care Management DCP: assessment: case received, EMR reviewed and d/c summary noted. Spoke with RN Sofy and then met with pt and his Shahid, here to take pt home. Introduced self and role. Pt is a 63 year old male who admitted to care of hospitalist team yesterday. PCP: Dr. Diaz. Pt also sees a homicide squad captain for his Plaque Psoriasis and admits that he forgot to mention when he admitted that his home medication includes a weekly injection to manage this disease. When Medina came in today she updated the RN and the physician and thus a clearer dx was obtained and pt is ok'd for home today. Both are now waiting for final d/c paperwork and will go home with clinic followup. CM Discharge Assessment Start: 08/15/18 15:40 Freq: Status: Active Protocol: Document 08/15/18 15:40 ITV (Rec: 08/15/18 15:41 ITV [id number]) Discharge Planning Assessment Advance Directives? No History Provided By Patient Family Member Medical Record Prior Living Arrangements House Household Members spouse Comment N/A pt is discharging now Review Status In Process Next Review Type Continued Stay Review
== END 2018-08-15 15:35 | disposition home or self-care (01) ==
LOC: ED 10:27 → AC 08-15 07:06
PROVIDERS: Admitting Provider Hospitalist; Emergency Provider Emergency Medicine; Family Provider Internal Medicine; PCP Internal Medicine; Visit Provider Hospitalist
DX: L03.115 Cellulitis of right lower limb (principal); M79.661 Pain in right lower leg; M10.9 Gout, unspecified; E11.9 Type 2 diabetes mellitus without complications; I10 Essential (primary) hypertension; E03.9 Hypothyroidism, unspecified
CPT/HCPCS: 36415; 36569; 36591; 77001; 80053; 82550; 82962; 83605; 84145; 84550; 85025; 85610; 85730; 86140; 87040; 93925; 93971; 94762; 96365; 97116; 97161; 99283; 99284; G0378; J1644; J1956

== ENCOUNTER → 2018-11-29 15:26 | Outpatient (CLI) | payer OTHER, SELFPAY ==
[2018-08-14 12:53] VITALS: BMI 36.8
--- NOTE | 2018-11-29 | DI.RAD.S_ITS ---
PROCEDURE: XR SHOULDER LT MIN 2V INDICATIONS: HAND/SHOULDER PAIN TECHNIQUE: 3 views of the shoulder were acquired. COMPARISON: [facility], , SHOULDER MINIMUM 2 VIEW LEFT, 11/15/2013, 10:48. FINDINGS: Bones: No fractures or dislocations. No suspicious bony lesions. Visualized ribs appear intact. No mild to moderate degenerative changes of the glenohumeral joint are present. There moderate degenerative changes of the acromioclavicular joint. No definite osseous erosions are appreciated. Soft tissues: No suspicious soft tissue calcifications. 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 Dictated by: Abhay Cedeno M.D. on 11/29/2018 at 15:02 Approved by: Abhay Cedeno M.D. on 11/29/2018 at 15:04
--- NOTE | 2018-11-29 | DI.RAD.S_ITS ---
PROCEDURE: XR SHOULDER RT MIN 2V INDICATIONS: SHOULDER/HAND PAIN TECHNIQUE: 3 views of the shoulder were acquired. COMPARISON: [facility], , SHOULDER MINIMUM 2 VIEW LEFT, 11/15/2013, 10:48. FINDINGS: Bones: No fractures or dislocations. No suspicious bony lesions. Visualized ribs appear intact. Mild to moderate degenerative changes of the glenohumeral joint are present. There are severe degenerative changes of the acromioclavicular joint. Bony protuberances along the undersurface of the distal clavicle and the undersurface of the mid clavicle is suggestive of previous acromioclavicular joint separation injury. No definite osseous erosions are evident. Soft tissues: No suspicious soft tissue calcifications. IMPRESSION: 1. Mild to moderate degenerative changes of the glenohumeral joint. 2. Severe degenerative of the acromioclavicular joint are suggestive of prior AC joint separation injury. Dictated by: Abhay Cedeno M.D. on 11/29/2018 at 15:04 Approved by: Abhay Cedeno M.D. on 11/29/2018 at 15:09
--- NOTE | 2018-11-29 | DI.RAD.S_ITS ---
PROCEDURE: XR HAND RT MIN 3V INDICATIONS: HAND/SHOULDER PAIN TECHNIQUE: 3 views of the hand(s) acquired. COMPARISON: [facility], , HAND 3V LEFT, 09/03/2016, 10:19. FINDINGS: Bones: No fractures or dislocations. Carpal bones are normally aligned. No suspicious bony lesions. Mild degenerative changes are identified involving the metacarpal phalangeal and interphalangeal joints of the hand. No definite osseous erosions are appreciated. No evidence of chondrocalcinosis is evident. Soft tissues: No suspicious soft tissue calcifications. IMPRESSION: Mild degenerative changes of the right hand are most suggestive of osteoarthritis. No definite erosions. Dictated by: Abhay Cedeno M.D. on 11/29/2018 at 15:10 Approved by: Abhay Cedeno M.D. on 11/29/2018 at 15:11
--- NOTE | 2018-11-29 | DI.RAD.S_ITS ---
PROCEDURE: XR HAND LT MIN 3V INDICATIONS: HAND/SHOULDER PAIN TECHNIQUE: 3 views of the hand(s) acquired. COMPARISON: [facility], CR, XR HAND RT MIN 3V, 11/29/2018, 15:37. [facility], CR, HAND 3V LEFT, 09/03/2016, 10:19. FINDINGS: Bones: No mild degenerative changes of the left hand are present, primarily involving the metacarpophalangeal and interphalangeal joints. The signs are most pronounced involving the thumb. No definite osseous erosions are appreciated. Soft tissues: No suspicious soft tissue calcifications. A small thin metallic density appears to be overlying the tip of the thumb, which may represent a foreign body. IMPRESSION: Mild degenerative changes of the left hand are most suggestive of osteoarthritis. No osseous erosions are evident. Dictated by: Abhay Cedeno M.D. on 11/29/2018 at 15:12 Approved by: Abhay Cedeno M.D. on 11/29/2018 at 15:13
== END ==
PROVIDERS: Family Provider Internal Medicine; PCP Internal Medicine; Visit Provider Internal Medicine Rheumatology
DX: M25.512 Pain in left shoulder (principal); M25.511 Pain in right shoulder; M19.012 Primary osteoarthritis, left shoulder; M19.011 Primary osteoarthritis, right shoulder; M79.642 Pain in left hand; M79.641 Pain in right hand
CPT/HCPCS: 73030; 73130

== ENCOUNTER → 2019-11-14 16:10 | Outpatient (CLI) | payer OTHER, SELFPAY ==
[2018-08-14 12:53] VITALS: BMI 36.8
--- NOTE | 2019-11-14 | DI.RAD.S_ITS ---
PROCEDURE: XR LUMBAR SPINE 2-3V INDICATIONS: back pain TECHNIQUE: 3 views of the lumbar spine were acquired. COMPARISON: [facility], , L-SPINE 2-3 VIEWS, 05/02/2017, 14:43. FINDINGS: Bones: No fracture or focal osseous destruction. Multilevel degenerative endplate sclerosis and spurring. Diffuse facet arthropathy. Straightening of the normal lordotic curvature. Diffuse moderate lumbar disc space narrowing. Posterior spinal cerclage wire fixation at the level of L5-S1, with chronic fractured appearance. Bilateral hip joint degeneration. Soft tissues: Overlying bowel gas pattern is normal. No suspicious soft tissue calcifications. IMPRESSION: No interval change since 05/02/17 as above Dictated by: Rui May M.D. on 11/14/2019 at 16:54 Approved by: uRi May M.D. on 11/14/2019 at 16:59
--- NOTE | 2019-11-14 | DI.RAD.S_ITS ---
PROCEDURE: XR THORACIC SPINE 3V INDICATIONS: BACK PAIN TECHNIQUE: 3 views of the thoracic spine were acquired. COMPARISON: None. FINDINGS: Bones: No fractures or dislocations. No suspicious bony lesions. Diffuse endplate sclerosis and spurring. Soft tissues: No paravertebral stripe thickening. IMPRESSION: No fracture identified Diffuse spondylitic changes Dictated by: Rui May M.D. on 11/14/2019 at 16:59 Approved by: Rui May M.D. on 11/14/2019 at 17:00
== END ==
PROVIDERS: Family Provider Internal Medicine; PCP Internal Medicine; Referring Provider Internal Medicine; Visit Provider Internal Medicine
DX: M54.9 Dorsalgia, unspecified (principal); M47.816 Spondylosis without myelopathy or radiculopathy, lumbar region; M47.814 Spondylosis without myelopathy or radiculopathy, thoracic region; M16.0 Bilateral primary osteoarthritis of hip
CPT/HCPCS: 72072; 72100

== ENCOUNTER → 2020-09-10 15:37 | Outpatient (CLI) | payer OTHER, SELFPAY ==
[2020-08-06 09:04] VITALS: BMI 36.8
--- NOTE | 2020-09-10 15:38 | DI.MRI.S_ITS ---
PROCEDURE: MR LUMBAR SPINE WO CON INDICATIONS: Myelopathy; Spinal stenosis TECHNIQUE: Noncontrast sagittal T1 spin echo and T2 fast echo, sagittal STIR, axial T1 and T2 fast spin echo through the lumbar spine. In cases with scoliosis, additional coronal T2 fast spin echo may be performed. COMPARISON: [facility], MR, L-SPINE W&WO CONTRAST, 04/02/2014, 18:31. [facility], MR, L-SPINE WITH AND WITHOUT CONTR, 02/10/2012, 18:58. [facility], MR, L-SPINE WITH AND WITHOUT CONTR, 06/17/2011, 9:43. [facility], MR, L-SPINE WITHOUT CONTRAST, 02/26/2009, 12:53. [facility], MR, L-SPINE WITHOUT CONTRAST, 09/08/2007, 19:27. [facility], MR, L-SPINE WITHOUT CONTRAST, 05/27/2017, 14:58. [facility], , MR CERVICAL SPINE WO CON, 09/10/2020, 15:57. [facility], CR, XR LUMBAR SPINE 2-3V, 11/14/2019, 16:13. FINDINGS: Image quality: Excellent. Alignment and Curvature: There is reversal of the normal lumbar lordosis, with the apex at the L2-L3 level. Bone Marrow: Marrow is of normal overall signal. No acute vertebral body compression fractures. Spinal Cord: Conus medullaris terminates at the L1 level. Visualized cord demonstrates normal signal and size. Paraspinous Soft Tissues: No paravertebral masses. T12-L1: No significant abnormality is seen. L1-L2: Moderate loss of disc height is seen. Loss of disc signal is seen. Moderate disc bulge is seen, which is eccentric to the left. Moderate to prominent facet hypertrophy is seen. There is at least moderate bilateral neural foraminal narrowing seen, left worse than right. At least moderate central canal narrowing can be seen at this level. These imaging findings have progressed compared to the prior study. L2-L3: Moderate loss of disc height and disc signal can be seen. Moderate disc bulge is seen, with a mild central disc protrusion. Bridging endplate osteophytes are seen. There is mild right-sided and moderate left-sided neural foraminal narrowing seen. Mild to moderate central canal narrowing can be seen at this level. There is slight progression compared to 2017. L3-L4: Moderate loss of disc height is seen. Loss of disc signal is seen. Moderate generalized disc bulge is seen. Moderate facet joint hypertrophy is seen. Mild bilateral neural foraminal narrowing is seen. Mild to moderate central canal narrowing is seen. When comparison is made with the prior examination, these findings are similar. L4-L5: Mild loss of disc height is seen. The disc signal is relatively well preserved. Moderate to prominent disc bulge is seen. Moderate to prominent facet hypertrophy is seen, right worse than left. Postoperative changes are seen, with left hemilaminectomy change. There is moderate left-sided and mild to moderate right-sided neural foraminal narrowing seen. No significant central canal narrowing is seen. When comparison is made with the prior examination, these findings are similar. L5-S1: Postoperative changes are seen at this level, with postoperative cerclage wires and changes of the posterior elements. Bony fusion can be seen at this level. At least moderate facet hypertrophy can be seen. There is moderate left-sided and moderate to severe right-sided neural foraminal narrowing seen. There is a degree of compression seen upon the exiting right L5 nerve root. No significant central canal narrowing is seen. When compared to 2017, the degenerative changes are similar. IMPRESSION: Lower lumbar spine postoperative change is seen, as before. Mild progression of degenerative change at L1-L2 and L2-L3 compared to 2017. Dictated by: Mandeep Reveles M.D. on 09/10/2020 at 16:30 Approved by: Mandeep Reveles M.D. on 09/10/2020 at 16:36
--- NOTE | 2020-09-10 15:38 | DI.MRI.S_ITS ---
PROCEDURE: MR CERVICAL SPINE WO CON INDICATIONS: Myelopathy;Spinal stenosis TECHNIQUE: Noncontrast sagittal T1 spin echo and T2 fast spin echo, sagittal STIR, foraminal oblique sagittal T2 fast spin echo, and axial gradient echo or T2 fast spin echo through the cervical spine. COMPARISON: None. FINDINGS: Image quality: Excellent. Alignment and Curvature: There is normal bony alignment. Bone Marrow: Marrow demonstrates normal overall signal. Spinal Cord: Visualized spinal cord has normal size and signal. No cerebellar tonsillar herniation. Paraspinous Soft Tissues: No paravertebral masses. Prevertebral soft tissues are normal in thickness. C2-C3: Mild loss of disc height is seen. Loss of disc signal is seen. Mild to moderate disc osteophyte complex is seen, with a central/left disc osteophyte protrusion. There is moderate right-sided and mild left-sided facet hypertrophy seen. There is [id number] right-sided and mild left-sided neural foraminal narrowing seen. Moderate central canal narrowing is seen. There is associated mass effect upon the ventral spinal cord. C3-C4: The disc height is well-preserved. Loss of disc signal is seen at this level. Moderate disc osteophyte complex is seen, which is eccentric to the left. There is a central/left disc osteophyte protrusion seen. Mild to moderate facet hypertrophy is seen. There is moderate to severe bilateral neural foraminal narrowing seen. Moderate to severe central canal narrowing is seen, with associated ventral cord flattening. C4-C5: The disc height is well-preserved. Loss of disc signal is seen at this level. Prominent bridging anterior osteophytes can be seen at this level. A mild degree of generalized disc osteophyte complex is seen. At least moderate bilateral facet hypertrophy can be seen. There is moderate to severe bilateral neural foraminal narrowing seen. Mild to moderate central canal narrowing is seen at this level. C5-C6: Moderate loss of disc height is seen. Loss of disc signal is seen. Prominent bridging anterior osteophytes are seen at this level. Moderate disc osteophyte complex is seen, which is eccentric to the left. There is a left lateral recess/foraminal disc osteophyte protrusion seen. Uncovertebral joint hypertrophy is seen at this level. Moderate facet joint hypertrophy is seen. There is moderate to severe bilateral neural foraminal narrowing seen, left worse than right. Mild to moderate central canal narrowing is seen. C6-C7: The disc height is well-preserved. Loss of disc signal is seen at this level. At least partially bridging anterior osteophytes are seen. Moderate disc osteophyte complex is seen, which is eccentric to the left. Moderate facet joint hypertrophy is seen. There is moderate to severe bilateral neural foraminal narrowing seen, left worse than right. Mild to moderate central canal narrowing is seen. C7-T1: The disc height is well-preserved. Loss of disc signal is seen at this level. Mild to moderate disc osteophyte complex is seen, which is eccentric to the left. There is [id number] left-sided and no significant right-sided neural foraminal narrowing seen. Minimal central canal narrowing is seen. IMPRESSION: Multiple levels of cervical spine degenerative change are seen, which are overall most prominent at the C3-C4 and C5-C6 levels. Dictated by: Mandeep Reveles M.D. on 09/10/2020 at 15:59 Approved by: Mandeep Reveles M.D. on 09/10/2020 at 16:12
== END ==
PROVIDERS: Family Provider Internal Medicine; PCP Internal Medicine; Referring Provider Orthopaedic Surgery; Visit Provider Orthopaedic Surgery
DX: M48.07 Spinal stenosis, lumbosacral region (principal); M47.812 Spondylosis without myelopathy or radiculopathy, cervical region; M47.816 Spondylosis without myelopathy or radiculopathy, lumbar region; R20.0 Anesthesia of skin; G95.9 Disease of spinal cord, unspecified
CPT/HCPCS: 72141; 72148

== ENCOUNTER → 2020-09-30 09:30 | Outpatient (CLI) | payer OTHER, SELFPAY ==
[2020-08-06 09:04] VITALS: BMI 36.8
[2020-09-30 10:17] LABS: Add Manual Diff / Slide Review NO; Basophils Absolute Auto 0 /uL (0-100); Basophils Percent Auto 0.8 % (0-2); Eosinophils Absolute Auto 300 /uL (0-450); Eosinophils Percent Auto 5.6 % (2-4); Hematocrit 44.2 % (41-53); Hemoglobin 14.3 g/dL (13.5-17.5); Lymphocytes Absolute Auto 1200 /uL (1100-4500); Lymphocytes Percent Auto 21.9 % (25-40); Mean Corpuscular HGB Conc 32.3 % (30-36); Mean Corpuscular Hemoglobin 30.6 PG (26-34); Mean Corpuscular Volume 94.9 fL (80-100); Monocytes Absolute Auto 600 /uL (0-900); Neutrophils Absolute Auto 3400 /uL (1500-7000); Neutrophils Percent Auto 61.7 % (50-75); Platelet Count 185 X10^3/uL (150-400); Red Blood Cell Count 4.66 X10^6/uL (4.5-5.9); Red Cell Distribution Width 16.2 % (11.6-14.8); White Blood Cell Count 5.5 X10^3/uL (4.5-11.0)
[2020-09-30 11:04] LABS: Blood Urea Nitrogen 24 mg/dL (9-20); Calcium 9.6 mg/dL (8.4-10.2); Carbon Dioxide 23 mmol/L (22-32); Chloride 102 mmol/L (98-107); Estimated Glomerular Filt Rate > 60.0 mL/min (>60); Glucose 220 mg/dL (80-110); HEMOLYSIS < 15 (0-50); Potassium 4.7 mmol/L (3.4-5.1); Sodium 136 mmol/L (137-145)
== END ==
PROVIDERS: Family Provider Internal Medicine; PCP Internal Medicine; Referring Provider Orthopaedic Surgery; Visit Provider Orthopaedic Surgery
DX: Z01.818 Encounter for other preprocedural examination (principal); Z01.812 Encounter for preprocedural laboratory examination
CPT/HCPCS: 36415; 80048; 85025; 93005

== ENCOUNTER → 2020-10-07 15:54 | Outpatient (CLI) | payer OTHER, SELFPAY ==
[2020-08-06 09:04] VITALS: BMI 36.8
[2020-10-07 17:35] LABS: COVID19 -Nasal RAPID Negative (Negative)
== END ==
PROVIDERS: Family Provider Internal Medicine; PCP Internal Medicine; Visit Provider Physician Assistant
DX: Z01.812 Encounter for preprocedural laboratory examination (principal); Z20.822 Contact with and (suspected) exposure to COVID-19
CPT/HCPCS: 87635

== ENCOUNTER 2020-10-10 08:30 | Day surgery (SDC) | payer OTHER, SELFPAY ==
[2020-08-06 09:04] VITALS: BMI 36.8
[2020-10-10] VITALS (29 sets, daily range): BP systolic 136–202; BP diastolic 57–95; PULSE 62–142; RESP 9–21; TEMP 35.8–36.8; O2SAT 88–100; BMI 35.6
--- NOTE | 2020-10-10 | DI.RAD.S_ITS ---
PROCEDURE: XR CERVICAL SPINE 2V OR 3V INDICATIONS: C3/4 ACDF TECHNIQUE: 2 view(s) of the cervical spine were acquired. COMPARISON: [facility], MR, MR CERVICAL SPINE WO CON, 09/10/2020, 15:57. FINDINGS: Intra-operative images demonstrating anterior fusion at C3-4. There is good anatomic alignment. IMPRESSION: C3-4 anterior fusion. Dictated by: Anushka De La Torre M.D. on 10/10/2020 at 11:20 Approved by: Anushka De La Torre M.D. on 10/10/2020 at 11:21
--- NOTE | 2020-10-10 08:57 | PM.PREOP ---
Pre-operative Note COVID-19 COVID-19 status: Negative Result date/Date tested (Pos, Neg/Pending): 10/07/20 Interval Note History & Physical reviewed/Exam performed by Physician: Yes Changes to H&P: No
--- NOTE | 2020-10-10 08:57 | PM.OP.1 ---
Operative Date/Time/Diagnoses Date of procedure: 10/10/20 Time of procedure: 10:59 Pre-op diagnosis: Cervical stenosis with myelopathy Post-op diagnosis: same Procedure & Clinicians Procedure: C3-4 ACDF with cage Iliac crest bone graft aspirate Use of microscope Same procedure as scheduled: Yes Indications: [age] year old male with cervical myelopathy from stenosis. They had failed conservative management and requested operative intervention. Risks and benefits of surgery were discussed and appropriate consents were obtained. Surgeon: Dao Howard Watch Assembly Instructor: Fani Cleveland Anesthesia Type: General Operative Notes Findings: None Closure Type: primary Specimen(s): none sent Prosthetic devices, grafts, tissues, transplants, or devices: [employer] KERI-C Estimated Blood Loss (mL): 5 Procedure in detail: Patient was brought to the operating room and intubated on the table. A time-out was performed. Preoperative antibiotics were given. The neck was prepped and draped in the standard sterile fashion. Using a skin fold, we made a 3 cm oblique incision on the left side. We used Bovie to go through the platysma and then did a standard anterolateral blunt dissection down to the precervical fascia. Fascia was nicked and elevated up. A marker was placed and x-ray was taken for localization. We then subperiosteally elevated up the longus colli muscles. Self-retaining retractors were placed. Runnells pins were placed. We then brought in the microscope. A scalpel used to perform an annulotomy. We then used a combination of pituitaries and curettes and Kerrison to perform a complete anterior diskectomy at C3-4. We used the bur to take down the posterior osteophytes. We took down the PLL and used Kerrison to remove any posterior disc material and osteophytes. At the end we could from the nerve hook cephalad caudally and out the foramen and everything was opened. A small stab incision was made over the left anterior iliac crest. A Jamshidi needle was advanced into the pelvis and 2 mL of bone marrow was aspirated. We then used the trials. We then packed a 14 x 16 x 6 mm KERI-C cage with Primagen bone graft and the iliac crest harvest. The cage was placed under fluoroscopic guidance. We then placed our two locking plates. The self-retaining retractors and Runnells pins were removed and final x-rays taken. The wound was irrigated. There was no bleeding. The carotid was beating nicely. The platysma was closed. The superficial was closed. The skin was closed. A sterile dressing was placed. They were then extubated and brought to recovery room with no complications. Complications: none Post-operative Condition: stable Disposition: PACU Plan for aftercare: Overnight admission. Up with PT. Soft collar for comfort.
[2020-10-10] MEDS: LACTATED RINGERS 1,000 ML 42 ML IV (09:00)
[2020-10-10] MEDS: CEFAZOLIN 2 GM/100 ML FROZ.PIGGY IV ×2 (09:50→18:04)
--- NOTE | 2020-10-10 10:14 | SUR.OPER ---
Supine, head on gel donut. Arms padded with gel pads, tucked at sides, towel roll under shoulders. Safety belt at thigh. Legs uncrossed.
[2020-10-10] MEDS: BUPIVACAINE 0.5% W/ EPI (PF) 30 ML VIAL INJ (10:28)
[2020-10-10] MEDS: THROMBIN (RECOMBINANT) 5,000 UNIT VIAL 5000 UNIT TOP (10:29)
[2020-10-10] MEDS: SODIUM CHLORIDE 0.9% 1,000 ML, GENTAMICIN 80 MG IRR (10:29)
[2020-10-10] MEDS: HYDROMORPHONE 2 MG INJ IV ×4 (11:14→11:37)
[2020-10-10] MEDS: ALBUTEROL/IPRATROPIUM 3 ML AMPUL INH (11:19)
[2020-10-10] MEDS: LABETALOL 20 MG/4 ML SYRINGE IV (11:37)
[2020-10-10] MEDS: LABETALOL 20 MG/4 ML SYRINGE 10 MG IV (11:52)
--- NOTE | 2020-10-10 11:53 | SUR.PHASEI ---
dr salinas at bedside, would like bp treated, placed order for antihypertensive
[2020-10-10] MEDS: OXYCODONE/ACETAMINOPHEN 5/325 TABLET 1 TAB PO ×2 (11:56→12:32)
[2020-10-10] MEDS: HYDRALAZINE 20 MG/ML VIAL 10 MG IV ×2 (12:09→12:29)
[2020-10-10] MEDS: LACTATED RINGERS 1,000 ML 125 ML IV ×2 (13:56→23:17)
[2020-10-10] MEDS: BENZOCAINE/MENTHOL 1 LOZ PKT 1 EACH PO (14:00)
[2020-10-10] MEDS: hydrOXYzine pamoate 25 MG CAPSULE PO ×2 (14:00→23:28)
[2020-10-10] MEDS: HYDROMORPHONE 0.5 MG INJ IV (14:22)
--- NOTE | 2020-10-10 14:25 | PT.IIE ---
Current Diagnoses Other spondylosis with myelopathy, cervical region (10/10/20) Spinal stenosis, cervical region (10/10/20) Spinal stenosis, lumbar region with neurogenic claudication (10/10/20) Arthrodesis status (10/10/20) Surgery Performed Operation Date: 10/10/20 09:45 Actual Procedures p C34 anterior cervical discectomy and fusion with bone graft - Dao Howard MD Surgical History (Last Updated 10/08/20 @ 17:05 by Jodi Marcum, RN) History of appendectomy History of carpal tunnel release of both wrists History of cholecystectomy History of laparoscopic cholecystectomy (~2010) History of lumbar fusion (~1988) History of lumbar laminectomy (~1985) History of lumbar laminectomy (~2010) History of resection of small bowel S/P epidural steroid injection Medical History (Last Updated 10/08/20 @ 17:09 by Jodi Marcum, RN) Cervical arthritis with myelopathy Cervical stenosis of spinal canal Diabetes Diabetic peripheral neuropathy associated with type 2 diabetes mellitus Former smoker GERD (gastroesophageal reflux disease) Gout Hyperlipidemia Hypertension Hypothyroidism Inflammatory bowel disease Lumbar stenosis with neurogenic claudication Obesity (BMI 30-39.9) Obstructive sleep apnea Psoriasis Spinal stenosis Type 2 diabetes mellitus Physical Therapy Inpatient Evaluation/Re-Eval M1 PT/OT-IP Prior Functional Status Start: 10/10/20 15:19 Freq: NEEDED Status: Active Protocol: Document 10/10/20 14:25 AB (Rec: 10/10/20 15:38 AB [id number]) Medical Review Prior Functional Status Medical History Reviewed Yes Communication able to make needs known Mobility and Gait pt stated that he is independent with all mobilities and ambulation without AD but occasionally uses a SPC depending on back pain and balance issues Social History Household Members spouse Living Arrangements House Number of Floors (Floors) One Floor Number of Stairs To Enter/Railing? 1 step to enter Home Environment Standard Height Toilet,High Toilet,Walk in Shower Home Equipment Straight Cane,Hand Held Shower Additional Social History Comment spouse will only be available for the weekend to assist pt M2 PT-IP Current Condition Start: 10/10/20 15:19 Freq: NEEDED Status: Active Protocol: Document 10/10/20 14:25 AB (Rec: 10/10/20 15:38 AB [id number]) Physical Therapy Current Condition Current Condition Evaluation Date 10/10/20 Treatment Diagnosis s/p C3-4 ACDF; difficulty in walking Onset Date 10/10/20 Precautions Cervical Spine Precautions Soft Collar for Comfort,No Heavy Lifting,Log Roll M3 PT-IP Subjective Start: 10/10/20 15:19 Freq: NEEDED Status: Active Protocol: Document 10/10/20 14:25 AB (Rec: 10/10/20 15:38 AB [id number]) Subjective Physical Therapy Visit Type Type Initial Evaluation Visit Start Time 14:25 Visit Stop Time 14:56 Total Visit Minutes 31 Number of VAT TENDER Visits 0 Physical Therapy Visit Comments Patient Comments pt is agreeable to do PT Therapy Pain Assessment Pain When Pain Assessed At Rest Pain Present Pain Present Pain Reported Location Left Back Intensity 10 Scale Used Numeric (0 - 10) Pain Management Techniques Apply Cold,Distraction, Modification of Treatment,Re- positioning,Timing of Activity with Medications M4 PT-IP Mobility and Gait Start: 10/10/20 15:19 Freq: NEEDED Status: Active Protocol: Document 10/10/20 14:25 AB (Rec: 10/10/20 15:38 AB [id number]) PT-Bed Mobility Assessment Rolling Type of Rolling Log Rolling Level of Assist Maximal Assistance Supine to Sit Supine to Sit Maximum Assistance,1 Person Assistance,2 Person Assistance PT-Transfer Assessment Sit to and From Stand Sit to and from Stand Moderate Assistance,1 Person Assistance,Use of Upper Extremities Equipment Transfer Assistive Device Gait Belt Orthotic/Prosthetic Devices or Brace: Yes Transfers Transfer Destination Chair Transfer Technique ambulation using FWW Transfer Ability Level of Assist Moderate Assistance,1 Person Assistance,Use of Upper Extremities Comments Mobility Comments pt c/o L back/hip pain. pt had a L side iliac crest graft for his cervical surgery. educated pt on cervical precautions and log roll bed mobility. pt stated that he has been doing log roll bed mobility due to his back issues. pt completed supine to sit max A and max cues. pt was able to sit on EOB SBA. completed sit to stand mod A and cues and ambulated ~ 15 ft using FWW mod A. requested to sit up on chair and positioned on the chair. call light and table placed wtihin reach. Gait Assessment Gait Gait Assistance Required: Moderate Assistance Distance (Feet) 15 Able to Maintain Weight Bearing Status Yes During Gait Assistive Devices Assistive Device Gait Belt,Front Wheeled Walker Orthotic/Prosthetic Devices or Brace: No Gait Deviations General Gait Pattern Antalgic,Decreased Stride Length,Decreased Feet Clearance Factors Limiting Gait Function Factors Limiting Gait Function Decreased Activity Tolerance, Decreased Strength,Limited Range of Motion,Pain,Poor Balance,Poor Safety Awareness PT-Balance Assessment Sitting Balance and Reactions Static Sitting Balance Ability Good Dynamic Sitting Balance Ability Good Standing Balance and Reactions Static Standing Balance Ability Fair Dynamic Standing Balance Ability Fair Device Used FWW M5 PT-IP Objective Assessments Start: 10/10/20 15:19 Freq: NEEDED Status: Active Protocol: Document 10/10/20 14:25 AB (Rec: 10/10/20 15:38 AB [id number]) Orientation Orientation/Cognition Level of Alertness Alert Orientation Name,Place,Situation Language Function Ability No Deficits Noted Safety Awareness Understands Safety Issues Memory Description No Deficits Noted Gross Range of Motion Lower Extremity ROM Assessment Within Functional Limits Strength Lower Extremity Strength Assessment Bilaterally Impaired Hip 3+/5 Knee 4-/5 Sensation Assessment Sensation Gross Sensation WNL Muscle Tone Muscle Tone WNL Yes M6 PT-IP Treatment Start: 10/10/20 15:19 Freq: NEEDED Status: Active Protocol: Document 10/10/20 14:25 AB (Rec: 10/10/20 15:38 AB [id number]) Physical Therapy Treatment Education Education Provided Precautions,Weight Bearing Status,Post-Op Packet,Safety M7 PT-IP Assessment and Plan Start: 10/10/20 15:19 Freq: NEEDED Status: Active Protocol: Document 10/10/20 14:25 AB (Rec: 10/10/20 15:38 AB [id number]) PT Summary Assessment and Plan Potential Rehabilitation Potential Good Status of Condition at Evaluation Evolving Summary Impairments Pain,ROM,Strength,Balance, Coordination,Sensation,Bed Mobility,Transfers,Gait, Activity Tolerance Assessment Summary pt requiring max A with bed mobility and mod A for transfers/ambulation using FWW . spouse can only be with pt to assist until the weeked due to work. informed spouse that pt will need a FWW at this time and agreed and stated that she can get one for him. will continue to assess progress for safe d/c. pt will likely progress during hospital stay and will conduct caregiver training when appropriate as well as stair climbing training. Goals Bed Mobility Goal Independent Transfer Goal Independent,Front Wheeled Walker Gait Goal Independent,Front Wheel Walker Gait Distance 150 Other Goals improve ambulation using SPC 200 ft SBA up/down 1 step using [facility] S[place] Days to Meet Goals 5 Frequency of Treatment Frequency Of Treatment Twice a Day Treatment Plan Physical Therapy Treatment Plan Bed Mobility Training,Transfer Training,Gait Training, Therapeutic Exercise,Balance Retraining,Post Op Education, Discharge Planning,Hot or Cold Pack,Neuromuscular Re-ed, Coordination Retraining,Manual Therapy Other Recommendations and Next Treatment ambulation, caregiver training Focus when appropriate, stair climbing Recommendations To Nursing Amount of Assist Needed 1 Person Assist Discharge Recommendations PT Discharge Recommendations Home with Assistance Equipment Needed for Home Before FWW Discharge Transportation Needs at Discharge Private Vehicle
[2020-10-10] MEDS: INSULIN ASPART 100 UNIT/ML INSULN PEN SUBCUT (16:28)
[2020-10-10] MEDS: METFORMIN HCL 500 MG TABLET 1000 MG PO (21:02)
[2020-10-10] MEDS: SENNOSIDES 8.6 MG TABLET 17.2 MG PO (21:02)
[2020-10-10] MEDS: GABAPENTIN 300 MG CAPSULE PO (21:02)
[2020-10-10] MEDS: DOCUSATE 100 MG CAPSULE PO (21:02)
[2020-10-10] MEDS: carvediloL 12.5 MG TABLET 25 MG PO (21:02)
[2020-10-10] MEDS: AMITRIPTYLINE 10 MG TABLET 20 MG PO (21:03)
[2020-10-10] MEDS: ATORVASTATIN 20 MG TABLET 40 MG PO (21:03)
[2020-10-10] MEDS: ramipriL 5 MG CAPSULE 10 MG PO (21:03)
[2020-10-10] MEDS: GLIMEPIRIDE 2 MG TABLET PO (21:03)
[2020-10-11] MEDS: CEFAZOLIN 2 GM/100 ML FROZ.PIGGY IV (02:11)
[2020-10-11] MEDS: LEVOTHYROXINE 75 MCG TABLET PO (05:57)
[2020-10-11 05:58] VITALS: BP 121/57; PULSE 72; RESP 18; TEMP 36.9; O2SAT 93
--- NOTE | 2020-10-11 07:51 | P.PN_ITS ---
Subjective Subjective Date Patient Seen: 10/11/20 Time Patient Seen: 07:51 Interval history: His throat is very sore but otherwise doing well with pain. Still feels weak in the hands. Exam Vital Signs (past 8 hours): - 10/11/20 05:58 Temperature 98.4 F Pulse Rate 72 Respiratory Rate 18 Blood Pressure 121/57 L Pulse Oximetry 93 Oxygen Delivery Method Room Air Oxygen Flow Rate 0 Const Orientation: alert and oriented x3 Back/Spine/Pelvis Other: CDI. 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, improved compared to preoperative [facility] Medical History (Updated 10/08/20 @ 17:09 by Jodi Marcum, RN) Cervical arthritis with myelopathy Cervical stenosis of spinal canal Diabetes Diabetic peripheral neuropathy associated with type 2 diabetes mellitus Former smoker GERD (gastroesophageal reflux disease) Gout Hyperlipidemia Hypertension Hypothyroidism Inflammatory bowel disease Lumbar stenosis with neurogenic claudication Obesity (BMI 30-39.9) Obstructive sleep apnea Psoriasis Spinal stenosis Type 2 diabetes mellitus Surgical History (Updated 10/08/20 @ 17:05 by Jodi Marcum RN) History of appendectomy History of carpal tunnel release of both wrists History of cholecystectomy History of laparoscopic cholecystectomy (~2010) History of lumbar fusion (~1988) History of lumbar laminectomy (~1985) History of lumbar laminectomy (~2010) History of resection of small bowel S/P epidural steroid injection Social History marital status: number of children: 1 household members: spouse lives independently: Yes caregiver/support person: No 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 Mobilize with therapy this morning and then discharge home.
[2020-10-11 07:58] VITALS: BP 121/56; PULSE 67; RESP 16; TEMP 36.4; O2SAT 95
--- NOTE | 2020-10-11 08:54 | CM.DANOTE ---
Discharge Planning/Care Management DCP: assessment: case received, EMR reviewed and met with pt. Introduced self and role. Pt is found lying in bed, soft collar in place. Pt is a 65 year old male who admitted yesterday for a scheduled spinal/cervical surgery. Surgeon: Dr. Howard PCP: Dr. Diaz Payer: Finn Platt PT is working with pt and recommends FWW. Pt says his is checking on this. If she has not gotten one he wishes this to be issued from the therapy consignment closet. Dr. Howard has a d/c order in place after he works more with PT today. P: agreed to check in later to help with FWW order if needed. Pt says he is comfortable with the plan for home today with his 's prn support. CM Discharge Assessment Start: 10/11/20 08:48 Freq: Status: Active Protocol: Document 10/11/20 08:52 ITV (Rec: 10/11/20 08:53 ITV [id number]) Discharge Planning Assessment Advance Directives? No Advance Directives on File No History Provided By Patient,Medical Record Prior Living Arrangements House Household Members spouse Independent with ADL's Yes Is patient alert and oriented? Yes Comment needs FWW per PT Pre-Anesthesia Assessment Start: 10/08/20 17:00 Freq: Status: Complete Protocol: Document 10/08/20 17:00 VLJ (Rec: 10/08/20 17:12 [facility] [id number]) Pre-Anesthesia Assessment Patient Information Reviewed Via Chart Review Diagnostic Results BMP/CMP,CBC,EKG Primary Care Provider Skip Diaz Seen Specialist in Last 12 Months Yes Specialist Seen Orthopedist Preferred Language Romansh Height 177.8 cm Anesthesia Review Requested No Automation Analyst No alcohol intake former alcohol intake frequency a few times a week Smoking Status Former smoker Substance Use Type does not use Musculoskeletal Symptoms Back Pain,Muscle Weakness, Numbness,Radiating Pain into Limb Comment Can walk 5-10 minutes before his legs feel weak Comment numbness in hands Diabetes Yes HgbA1C 6.4 Date 12/14/17 Lives With spouse Do You Have Any Spiritual Beliefs That No May Affect Your HC Choices? Do You Have Any Cultural Practices That No May Affect Your HC Choices? Emergency Contact Name Medina Eisenberg Emergency Contact Phone Number [phone] Advance Directives? No Power of Fowl Blood Tester No
[2020-10-11] MEDS: INSULIN ASPART 100 UNIT/ML INSULN PEN SUBCUT ×2 (09:08→12:06)
[2020-10-11 09:09] VITALS: BP 121/56; PULSE 67
[2020-10-11] MEDS: allopurinoL 300 MG TABLET PO (09:09)
[2020-10-11] MEDS: carvediloL 12.5 MG TABLET 25 MG PO (09:09)
[2020-10-11] MEDS: DOCUSATE 100 MG CAPSULE PO (09:10)
[2020-10-11] MEDS: FUROSEMIDE 20 MG TABLET PO (09:10)
[2020-10-11] MEDS: METFORMIN HCL 500 MG TABLET 1000 MG PO (09:11)
[2020-10-11] MEDS: hydrOXYzine pamoate 25 MG CAPSULE PO (09:11)
[2020-10-11] MEDS: ramipriL 5 MG CAPSULE 10 MG PO (09:11)
[2020-10-11] MEDS: GLIMEPIRIDE 2 MG TABLET PO (09:11)
--- NOTE | 2020-10-11 09:30 | ST.IPSCREEN ---
Pt seen for voice/swallow screening following ACDF surgery yesterday. Pt reported that his voice was better than yesterday and that he has some pain with swallowing. Pt was assured that this is normal after surgery. Written information was provided to pt regarding voice and swallow effects of ACDF surgery. He was instructed to contact his MD if there isn't improvement in 2-3 weeks. Pt indicated that he understood and was appreciative.
--- NOTE | 2020-10-11 10:39 | PT.IPTN ---
Current Diagnoses Other spondylosis with myelopathy, cervical region (10/10/20) Spinal stenosis, cervical region (10/10/20) Spinal stenosis, lumbar region with neurogenic claudication (10/10/20) Arthrodesis status (10/10/20) Surgery Performed Operation Date: 10/10/20 09:45 Actual Procedures p C34 anterior cervical discectomy and fusion with bone graft - Dao Howard MD Physical Therapy Treatment Note M2 PT-IP Current Condition Start: 10/10/20 15:19 Freq: NEEDED Status: Discharge Protocol: Document 10/10/20 14:25 AB (Rec: 10/10/20 15:38 AB [id number]) Physical Therapy Current Condition Current Condition Evaluation Date 10/10/20 Treatment Diagnosis s/p C3-4 ACDF; difficulty in walking Onset Date 10/10/20 Precautions Cervical Spine Precautions Soft Collar for Comfort,No Heavy Lifting,Log Roll M3 PT-IP Subjective Start: 10/10/20 15:19 Freq: NEEDED Status: Discharge Protocol: Document 10/11/20 10:08 CLB (Rec: 10/11/20 12:34 CLB [id number]) Subjective Physical Therapy Visit Type Type Treatment Note Visit Start Time 10:08 Visit Stop Time 10:39 Total Visit Minutes 31 Number of SENIOR MI[employer]OS[employer] NET DEVELOPER Visits 1 Physical Therapy Visit Comments Patient Comments pt is agreeable to do PT Therapy Pain Assessment Pain When Pain Assessed During Mobility Pain Present Pain Present Pain Reported Location Posterior Neck Intensity 4 Scale Used Numeric (0 - 10) Pain Management Techniques Apply Cold,Modification of Treatment,Timing of Activity with Medications M4 PT-IP Mobility and Gait Start: 10/10/20 15:19 Freq: NEEDED Status: Discharge Protocol: Document 10/11/20 10:08 CLB (Rec: 10/11/20 12:34 CLB [id number]) PT-Bed Mobility Assessment Rolling Type of Rolling Log Rolling Level of Assist Standby Assistance,1 Person Assistance Supine to Sit Supine to Sit Minimal Assistance,1 Person Assistance PT-Transfer Assessment Sit to and From Stand Sit to and from Stand Contact Guard Assistance,Use of Upper Extremities Equipment Transfer Assistive Device Gait Belt,Front Wheeled Walker Orthotic/Prosthetic Devices or Brace: Yes Transfers Transfer Destination Chair Transfer Technique ambulation using FWW Transfer Ability Level of Assist Contact Guard Assistance,Use of Upper Extremities Comments Mobility Comments Pt able to LR SBA then required Min A for sidelying to sit. Pt stood CGA and ambulated in bustamante to therapy stairs. Pt ascended/descended one platform step with FWW. Pt then ambulated back to room. Pt sat in chair SBA. Left pt in chair with all needs within reach. Informed RN of pt progress. Gait Assessment Gait Gait Assistance Required: Standby Assistance,Contact Guard Assist Distance (Feet) 150 Able to Maintain Weight Bearing Status Yes During Gait Assistive Devices Assistive Device Gait Belt,Front Wheeled Walker Orthotic/Prosthetic Devices or Brace: No Gait Deviations General Gait Pattern Antalgic,Decreased Stride Length,Decreased Feet Clearance Factors Limiting Gait Function Factors Limiting Gait Function Decreased Activity Tolerance, Decreased Strength,Limited Range of Motion,Pain,Poor Balance,Poor Safety Awareness Comments Gait Comments Pt ambulated ~150ft with slow saul. Stair Climbing Assessment Evaluation Level of Assist On Stairs Contact Guard Assistance Technique/Endurance Stair Climbing Direction Ascend and Descend Stair Climbing Technique Step to Step Number of Steps Climbed 1 Stair Climbing Set # Repetitions (reps) 1 M5 PT-IP Objective Assessments Start: 10/10/20 15:19 Freq: NEEDED Status: Discharge Protocol: Document 10/10/20 14:25 AB (Rec: 10/10/20 15:38 AB [id number]) Orientation Orientation/Cognition Level of Alertness Alert Orientation Name,Place,Situation Language Function Ability No Deficits Noted Safety Awareness Understands Safety Issues Memory Description No Deficits Noted Gross Range of Motion Lower Extremity ROM Assessment Within Functional Limits Strength Lower Extremity Strength Assessment Bilaterally Impaired Hip 3+/5 Knee 4-/5 Sensation Assessment Sensation Gross Sensation WNL Muscle Tone Muscle Tone WNL Yes M6 PT-IP Treatment Start: 10/10/20 15:19 Freq: NEEDED Status: Discharge Protocol: Document 10/10/20 14:25 AB (Rec: 10/10/20 15:38 AB [id number]) Physical Therapy Treatment Education Education Provided Precautions,Weight Bearing Status,Post-Op Packet,Safety M7 PT-IP Assessment and Plan Start: 10/10/20 15:19 Freq: NEEDED Status: Discharge Protocol: Document 10/11/20 10:08 CLB (Rec: 10/11/20 12:34 CLB [id number]) PT Summary Assessment and Plan Potential Rehabilitation Potential Good Status of Condition at Evaluation Evolving Summary Impairments Pain,ROM,Strength,Balance, Coordination,Sensation,Bed Mobility,Transfers,Gait, Activity Tolerance Progress Towards Goals Progressing Toward Goals Assessment Summary Pt improving with bed mobility requiring Min A supine-sit. Pt ambulated ~150ft in bustamante CGA then SBA and climbed platform step with FWW/CGA. Pt purchased pt a FWW and will be able to assist pt at home upon discharge. Goals Bed Mobility Goal Independent Transfer Goal Independent,Front Wheeled Walker Gait Goal Independent,Front Wheel Walker Gait Distance 150 Other Goals improve ambulation using SPC 200 ft SBA up/down 1 step using SPC SBA Days to Meet Goals 5 Frequency of Treatment Frequency Of Treatment Twice a Day Treatment Plan Physical Therapy Treatment Plan Bed Mobility Training,Transfer Training,Gait Training, Therapeutic Exercise,Balance Retraining,Post Op Education, Discharge Planning,Hot or Cold Pack,Neuromuscular Re-ed, Coordination Retraining,Manual Therapy Recommendations To Nursing Amount of Assist Needed 1 Person Assist Discharge Recommendations PT Discharge Recommendations Home with Assistance Transportation Needs at Discharge Private Vehicle
--- NOTE | 2020-10-11 11:42 | OT.IP.EVAL ---
Current Diagnoses Other spondylosis with myelopathy, cervical region (10/10/20) Spinal stenosis, cervical region (10/10/20) Spinal stenosis, lumbar region with neurogenic claudication (10/10/20) Arthrodesis status (10/10/20) Surgery Performed Operation Date: 10/10/20 09:45 Actual Procedures p C34 anterior cervical discectomy and fusion with bone graft - Dao Howard MD Past Medical History (Last Updated 10/08/20 @ 17:09 by Jodi Marcum, RN) Cervical arthritis with myelopathy Cervical stenosis of spinal canal Diabetes Diabetic peripheral neuropathy associated with type 2 diabetes mellitus Former smoker GERD (gastroesophageal reflux disease) Gout Hyperlipidemia Hypertension Hypothyroidism Inflammatory bowel disease Lumbar stenosis with neurogenic claudication Obesity (BMI 30-39.9) Obstructive sleep apnea Psoriasis Spinal stenosis Type 2 diabetes mellitus Surgical History (Last Updated 10/08/20 @ 17:05 by Jodi Marcum, RN) History of appendectomy History of carpal tunnel release of both wrists History of cholecystectomy History of laparoscopic cholecystectomy (~2010) History of lumbar fusion (~1988) History of lumbar laminectomy (~1985) History of lumbar laminectomy (~2010) History of resection of small bowel S/P epidural steroid injection Occupational Therapy Inpatient Evaluation/Re-Eval M1 PT/OT-IP Prior Functional Status Start: 10/10/20 15:19 Freq: NEEDED Status: Active Protocol: Document 10/11/20 15:23 CGR (Rec: 10/11/20 16:01 CGR [id number]) Medical Review Prior Functional Status Medical History Reviewed Yes Communication able to make needs known Mobility and Gait pt stated that he is independent with all mobilities and ambulation without AD but occasionally uses a SPC depending on back pain and balance issues Activities of Daily Living and IADL's Pt states that he was IND in all ADLs and 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 Social History Household Members spouse Living Arrangements House Number of Floors (Floors) One Floor Number of Stairs To Enter/Railing? 1 step to enter Home Environment Standard Height Toilet,High Toilet,Walk in Shower Home Equipment Front Wheel Walker,Straight Cane,Hand Held Shower Employment Status Retired Additional Social History Comment Pt's is able to assist this weekend but will need to be back at work on Wednesday. M2 OT-IP Current Condition Start: 10/11/20 15:23 Freq: Status: Active Protocol: Document 10/11/20 15:23 CGR (Rec: 10/11/20 16:01 R [id number]) Occupational Therapy Current Condition Current Condition Evaluation Date 10/11/20 Treatment Diagnosis C3-4 ACDF with bone graft. Diagnosis Onset Date 10/10/20 Post Operative Precautions Cervical Spine Precautions Soft Collar for Comfort,No Heavy Lifting,Log Roll M3 OT- IP Subjective and Pain Start: 10/11/20 15:23 Freq: Status: Active Protocol: Document 10/11/20 15:23 CGR (Rec: 10/11/20 16:01 CGR [id number]) OT- Subjective Occupational Therapy Visit Type Type Initial Evaluation Visit Start Time 10:48 Visit Stop Time 11:42 Total Visit Minutes 54 Notes Pt's present for second half of session. OT Pain Assessment Pain When Pain Assessed At Rest Pain Present Pain Present Denied Pain M4 OT- IP ADL's Start: 10/11/20 15:23 Freq: Status: Active Protocol: Document 10/11/20 15:23 CGR (Rec: 10/11/20 16:01 R [id number]) OT [id number] Comments OT Self-Feeding Comments Not meal time OT ADL-Grooming General Evaluation Grooming Ability Standby Assistance Areas Needing Assistance Retrieving/Set-up of Grooming Items,Combing/Brushing Hair, Face Washing Comments OT Grooming Comments standing at sink OT ADL-Oral Care General Eval Oral Care Ability Standby Assistance Areas of Assistance Brushing Teeth Comments Oral Care Comments standing at sink OT ADL-Dressing Comments OT Dressing Comments Discussed LB dressing. Pt states he has all equipment and uses the sock aide for LB dressing. Pt educated on use of the licensed mental health professional for pants and underwear and pt and spouse state understanding. OT ADL-Toileting General Evaluation Toileting Ability Independent Areas Needing Assistance Manage Clothing,Perform Perineal Hygiene Devices Toileting Assistive Devices Grab Bars Comments OT Toileting Comments Pt has BM seated on toielt. OT ADL-Bathing Comments OT Bathing Comments not performed, pt declined need. M5 OT- IP IADL's Start: 10/11/20 15:23 Freq: Status: Active Protocol: Document 10/11/20 15:23 CGR (Rec: 10/11/20 16:01 [facility] [id number]) OT-Instrumental Activities of Daily Living Deficits IADL Deficits Identified No Deficits Home Safety Awareness Awareness of Need for Assistance at Home Good Awareness Ability to Problem Solve Emergency Able to Problem Solve Situations Medication Management Medication Management No Deficits Identified Money Management Money Management No Deficits Identified Meal Preparation Meal Preparation Caregiver Provides Assist Pitch Gatherer Pitch Gatherer Caregiver Provides Assist Driving Driving Comments Pt understands that he should not be driving at this time. M6 OT- IP Functional Cognition Start: 10/11/20 15:23 Freq: Status: Active Protocol: Document 10/11/20 15:23 CGR (Rec: 10/11/20 16:01 [facility] [id number]) Cognitive Factors Limiting Selfcare Function Cognitive Ability Level of Alertness Alert Patient Orientation Name,Age,Birthday,Month,Date, Year,Day of Week,Place, Situation Attention Span Ability Capable of Focused Attention, Capable of Sustained Attention Ability to Follow Commands Able to Follow Multi-Step Commands Memory Description No Deficits Noted Safety Awareness No Deficits Noted Problem Solving Ability No deficits Noted OT- Vision and Hearing OT- Hearing Assessment OT- Hearing Assessment Hearing Impaired,Use of Hearing Aids OT- Vision Assessment Visual Acuity Glasses All The Time Visual Attentiveness WFL Occular Pursuits WFL Visual Convergence WFL Vision Assessment Comments Pt wears bifocals M7 OT- IP Mobility and Balance Start: 10/11/20 15:23 Freq: Status: Active Protocol: Document 10/11/20 15:23 CGR (Rec: 10/11/20 16:01 [facility] [id number]) OT-Transfer Assessment Sit to and From Stand Sit to and from Stand Standby Assistance Transfers Transfer Ability Standby Assistance Technique Transfer Destination Chair,Toilet Transfer Technique Stand Step Pivot Devices Transfer Assistive Devices Gait Belt,Front Wheeled Walker Comments Mobility Comments Mobility around the room and bathroom. OT- Gait Assessment Gait Gait Assistance Required: Standby Assistance Assistive Devices Assistive Device Gait Belt,Front Wheeled Walker OT- Balance Assessment Sitting Balance and Reactions Static Sitting Balance Ability Good Dynamic Sitting Balance Ability Good M8 OT- IP Objective Assessments Start: 10/11/20 15:23 Freq: Status: Active Protocol: Document 10/11/20 15:23 CGR (Rec: 10/11/20 16:01 [facility] [id number]) OT Gross Range of Motion Upper Extremity Range of Motion Assessment Within Functional Limits ROM Impairments B shld pain with beyong 90 degrees of fx. OT Strength Upper Extremity Strength Assessment Within Functional Limits OT- Coordination Assessment Upper Extremity Finger to Nose Test Within Functional Limits Finger Tapping Test Within Functional Limits OT-Muscle Tone Assessment Muscle Tone WNL Yes OT Sensation Assessment Comments Summary Comments Pt states that he often had numbness and tingling prior to sx. No sensation deficits stated on this date. Edema Edema Absent M9 OT- IP Assessment and Plan Start: 10/11/20 15:23 Freq: Status: Active Protocol: Document 10/11/20 15:23 CGR (Rec: 10/11/20 16:01 CGR [id number]) OT Summary Assessment and Plan Potential Rehabilitation Potential Excellent Analytic Complexity at Evaluation Low Summary Progress Towards Goals Safe For Discharge,Goals Met Assessment Summary Pt presents as a low complexity evaluation s/p admit for C3-4 ACDF with bone graft. Pt is at or close to his baseline with addition use of the walker and drclines shower at this time. No further OT needs. Frequency of Treatment Frequency Of Treatment Discharge Discharge Recommendations OT Discharge Recommendations Home with 29/03 Assist Transportation Needs at Discharge Private Vehicle
--- NOTE | 2020-10-11 12:14 | PC.NURSE ---
Addendum entered by Keiko Rich R.N. 10/11/20 15:18: Pulled [place] for patient prior to discharge, after patient education patient decided to wait and take his vistaril when able. Unable to return [place] directly to [facility]. [place] returned to pharmacy. Original Note: Patient A/O x 4, up to chair, PT, OT and ST in to see patient this AM. Patient is eager to D/C. C/O neck spasm, PRN Vistaril administered. Soft collar intact. Dsg is CDI. Hip dsg has dime sized serosang drainage. SCD's on. Pulses equal, patient denies numbness or tingling in extremities, strength equal bilaterally, weakness in bilateral upper extremities noted. Patient voiding in the urinal. IV removed with D/C orders. Patient tolerated. Discharge instructions and prescriptions given. Patient verbalized understanding on home medications, f/u appointment, showering and s/s of infection. bedside. Patient discharged via wheelchair with aide assist.
[2020-10-11 12:24] VITALS: BP 124/59; PULSE 72; RESP 18; O2SAT 95
== END 2020-10-11 12:10 | disposition home or self-care (01) ==
LOC: OR 11:01 → AC 12:34
PROVIDERS: Family Provider Internal Medicine; PCP Internal Medicine; Referring Provider Internal Medicine; Visit Provider Orthopaedic Surgery
PROC: (CPT 22551; principal; 2020-10-10 09:45)
DX: M48.02 Spinal stenosis, cervical region (principal); M47.12 Other spondylosis with myelopathy, cervical region; Z98.1 Arthrodesis status; I10 Essential (primary) hypertension; E11.9 Type 2 diabetes mellitus without complications; F17.210 Nicotine dependence, cigarettes, uncomplicated; G47.33 Obstructive sleep apnea (adult) (pediatric); K21.9 Gastro-esophageal reflux disease without esophagitis; Z79.84 Long term (current) use of oral hypoglycemic drugs
CPT/HCPCS: 22551; 22853; 20939; 72040; 76000; 82962; 97116; 97162; 97165; 97535; C1776; A9270; J0360; J0690; J1100; J1170; J2250; J2405; J2704; J3010

== ENCOUNTER → 2021-03-03 17:22 | Outpatient (CLI) | payer OTHER, SELFPAY ==
[2021-01-20 13:18] VITALS: BMI 35.6
--- NOTE | 2021-03-03 17:25 | DI.MRI.S_ITS ---
PROCEDURE: MR CERVICAL SPINE WO CON INDICATIONS: Cervical myelopathy status post fall and ACDF TECHNIQUE: Noncontrast sagittal T1 spin echo and T2 fast spin echo, sagittal STIR, foraminal oblique sagittal T2 fast spin echo, and axial gradient echo or T2 fast spin echo through the cervical spine. COMPARISON: [facility], MR, MR CERVICAL SPINE WO CON, 09/10/2020, 15:57. FINDINGS: Image quality: Excellent. Alignment and Curvature: There is loss of normal cervical lordosis. Severe reactive signal within the endplates adjacent to the C3-C4 intervertebral disc. Moderate reactive signal within the endplates adjacent to the C4-C5 and C5-C6 intervertebral discs. Bone Marrow: Marrow demonstrates normal overall signal. Spinal Cord: Visualized spinal cord has normal size . There is increased, mild T2 signal elevation within the right and left substance of the cord at the C3-C4 disc space level. No cerebellar tonsillar herniation. Paraspinous Soft Tissues: No paravertebral masses. Prevertebral soft tissues are normal in thickness. C2-C3: Congenital canal stenosis. Moderate disc desiccation. Mild diffuse disc bulge with superimposed left paracentral protrusion. Mild facet and uncovertebral hypertrophy. Severe canal stenosis. Mild cord flattening. Mild bilateral foraminal stenosis. No change. C3-C4: Congenital canal stenosis. Moderate disc height loss and desiccation. Mild diffuse disc bulge. Moderate facet and uncovertebral hypertrophy bilaterally. Severe canal stenosis. Mild cord flattening. Severe bilateral foraminal stenosis with bilateral C4 nerve root compression. No significant change. C4-C5: Congenital canal stenosis. Moderate disc desiccation. Mild diffuse disc bulge. Moderate facet and uncovertebral hypertrophy bilaterally. Moderate to severe canal stenosis. Moderate bilateral foraminal stenosis. No significant change. C5-C6: Congenital canal stenosis. Moderate disc height loss and desiccation. Mild diffuse disc bulge. Moderate facet and uncovertebral hypertrophy. Moderate to severe canal stenosis. Mild cord flattening. Severe left and moderate right foraminal stenosis. Left C6 nerve root compression. No significant change. C6-C7: Moderate disc desiccation. Mild diffuse disc bulge. Moderate facet and uncovertebral hypertrophy, left greater than right. Congenital canal stenosis. Moderate canal stenosis. Severe left and mild right foraminal stenosis. Left C7 nerve root compression. No significant change. C7-T1: Congenital canal stenosis. Moderate disc height loss and desiccation. Mild diffuse disc bulge. Mild facet and uncovertebral hypertrophy. No significant canal stenosis. Mild bilateral foraminal stenosis. IMPRESSION: 1. Diffuse congenital canal stenosis with superimposed disc and facet disease, as well as uncovertebral hypertrophy. 2. Multilevel canal stenoses, worst at C2-C3 , C3-C4, and C5-C6, where there is associated cord flattening. 3. Multilevel foraminal stenoses, worst at C3-C4, C5-C6, and C6-C7 where there is associated intraforaminal nerve root compression. Recommend correlation with clinical symptoms to ascertain relevance of these findings. 4. New cord signal elevation at the C3-C4 disc space level, consistent with cord injury/gliosis. Dictated by: Asael Rodriguez M.D. on 03/04/2021 at 9:51 Approved by: Asael Rodriguez M.D. on 03/04/2021 at 9:56
== END ==
PROVIDERS: Family Provider Internal Medicine; PCP Internal Medicine; Referring Provider Physical Medicine & Rehabilitation; Visit Provider Physical Medicine & Rehabilitation
DX: M47.12 Other spondylosis with myelopathy, cervical region (principal); M48.02 Spinal stenosis, cervical region; M50.01 Cervical disc disorder with myelopathy, high cervical region; Z98.1 Arthrodesis status
CPT/HCPCS: 72141

== ENCOUNTER → 2021-04-14 08:08 | Outpatient (CLI) | payer OTHER, SELFPAY ==
[2021-01-20 13:18] VITALS: BMI 35.6
[2021-04-14 12:48] LABS: COVID19 -Nasal RAPID Negative (Negative)
== END ==
PROVIDERS: Family Provider Internal Medicine; PCP Internal Medicine; Visit Provider Physical Medicine & Rehabilitation
DX: Z20.822 Contact with and (suspected) exposure to COVID-19 (principal)
CPT/HCPCS: 87635; C9803

== ENCOUNTER 2021-04-15 08:57 | Outpatient (CLI) | payer OTHER, SELFPAY ==
[2021-01-20 13:18] VITALS: BMI 35.6
[2021-04-15] VITALS (7 sets, daily range): BP systolic 135–163; BP diastolic 59–79; PULSE 59–66; RESP 10–20; TEMP 36.2; O2SAT 94–99
--- NOTE | 2021-04-15 09:00 | DI.RAD.S_ITS ---
PROCEDURE: PAIN C/T INTERLAMINAR INJECT INDICATIONS: SPINAL STENOSIS COMPARISON: [facility], MR, MR CERVICAL SPINE WO CON, 03/03/2021, 17:44. FINDINGS: Fluoroscopic spot filming was performed to verify placement of a spinal needle at the C6-C7 level, as labeled on the films. Appropriate location of the needle tip was confirmed by injection of iodinated contrast. IMPRESSION: No significant intraprocedural abnormality. Dictated by: Mandeep Reveles M.D. on 04/15/2021 at 9:55 Approved by: Mandeep Reveles M.D. on 04/15/2021 at 9:56
[2021-04-15] MEDS: MIDAZOLAM 5 MG/5 ML VIAL IV (10:20)
[2021-04-15] MEDS: fentaNYL 100 MCG/2 ML INJ 50 MCG IV (10:20)
[2021-04-15] MEDS: BUPIVACAINE 0.25% (PF) VIAL 2 ML INJ (10:24)
[2021-04-15] MEDS: IOPAMIDOL 15 ML VIAL 3 ML INJ (10:24)
[2021-04-15] MEDS: DEXAMETHASONE 10 MG/ML VIAL 30 MG INJ (10:25)
--- NOTE | 2021-04-15 10:34 | P.PCN_ITS ---
Date/Time/Diagnoses Date of procedure: 04/15/21 Time of procedure: 10:34 Pre-procedure diagnosis: 1. CERVICAL STENOSIS, 2. CERVICAL HNP WITH UPPER EXTREMITY RADICULAR FEATURES Post-procedure diagnosis: same Procedure Notes Procedure: 1. FLUORSCOPICALLY GUIDED CONTRAST CONTROLLED INTERLAMINAR EPIDURAL STEROID INJECTION - C6/7 TL [id number] Indications: Guy is referred by Dr. Diaz for treatment of Cervical HNP with Upper Extremity Paresthesias. Physician: Jared Tracey Total Fluoroscopy time (seconds): 24 Total sedation minutes: 12 Complications: none Procedure in detail & Post-procedure care: FINDINGS Cervical Stenosis due to disc deterioration and nerve root irritation and nerve root irritation DESCRIPTION OF PROCEDURE Fluoroscopically guided, contrast-controlled C6/7 translaminar epidural steroid injection with conscious sedation. Following review of allergy and review of potential side effects and complications, including, but not necessarily limited to, infection, allergic reaction, local tissue breakdown, temporary as well as permanent nerve injury, stroke, paralysis, and possible , the patient indicated that patient understood and agreed to proceed. An informed consent document was signed by the patient, witnessed by a nurse, and placed in the patient's chart. Additionally, other treatment options including modalities, medications, and physical therapy were reviewed with the patient. After review of previous anaesthesic history and IV conscious sedation the patient was deemed safe to proceed with today?s procedure with IV conscious sedation as ASA class II designation. Safety time-out was performed to confirm patient ID, procedure to be performed and site of procedure. IV sedation was accomplished with a combination of 2mg of Versed and 50mcg of Fentanyl administered by the RN after DO order, titrated to patient comfort during the course of the procedure while the patient remained responsive to all verbal commands. In the prone position, following sterile prep and drape of the cervical region, the C6/7 translaminar space was identified fluoroscopically. The skin was anesthetized via a 25-gauge 1.5-inch needle with 1% lidocaine solution. At this point, a 25-gauge, 2.5-inch short bevel spinal needle was atraumatically introduced and advanced under fluoroscopic guidance into epidural space at the C6/7 translaminar space. Depth was confirmed on lateral view. Radiological data, including multiple fluoroscopic views of the cervical spine, reveal a spinal needle at the C6/7 translaminar space. Lateral views then show placement of the needle in the epidural space. Subsequent views show contrast material flowing superiorly and inferiorly in the epidural space. DSA fluoroscopy with live contrast injection, once again, confirmed no vascular or intrathecal uptake. At this point, using loss of resistance technique with saline and air, the epidural space was entered. Following negative aspiration, injection of mina roximately 1.5 cc of Isovue-200 with live fluoroscopy in the AP view confirmed epidural flow in the epidural space without vascular or intrathecal uptake observed. Subsequently, a test dose of 1 cc of 1% lidocaine solution was injected and patient was observed for two minutes without signs or symptoms of complications, including abdominal pain, shortness of breath, bilateral upper or lower extremity weakness, nausea and vomiting, prior to steroid injection. At this point, 3cc or 30mg of dexamethasone was then injected without incident. The patient tolerated the procedure well without signs or symptoms of complications prior to being transferred to the recovery area for further monitoring, The patient was then transferred to the recovery area where they were observed for an appropriate period of time after the injection. The patient reported a VAS score of 6 prior to the procedure and a post-procedure VAS of 0. POST OP INSTRUCTIONS The patient was provided a Pain Log to continue to record their response to the target-specific procedure prior to follow-up visit with the referring provider. Additionally, specific post-injection care instructions and a contact number to our office were provided if concerns arise regarding possible complications associated with the procedure are suspected.
== END 2021-04-15 11:00 | disposition home or self-care (01) ==
LOC: RAD 08:59
PROVIDERS: Family Provider Internal Medicine; PCP Internal Medicine; Referring Provider Physical Medicine & Rehabilitation; Visit Provider Physical Medicine & Rehabilitation
DX: M48.02 Spinal stenosis, cervical region (principal); M50.123 Cervical disc disorder at C6-C7 level with radiculopathy
CPT/HCPCS: 62321; 99152; J1100; J2250; J3010

== ENCOUNTER → 2021-07-08 10:20 | Outpatient (CLI) | payer OTHER, SELFPAY ==
[2021-01-20 13:18] VITALS: BMI 35.6
[2021-07-08 11:47] LABS: COVID19 -Nasal RAPID Negative (Negative)
== END ==
PROVIDERS: Family Provider Internal Medicine; PCP Internal Medicine; Visit Provider Physical Medicine & Rehabilitation
DX: Z20.822 Contact with and (suspected) exposure to COVID-19 (principal)
CPT/HCPCS: 87635; C9803

== ENCOUNTER 2021-07-10 08:47 | Outpatient (CLI) | payer OTHER, SELFPAY ==
[2021-01-20 13:18] VITALS: BMI 35.6
[2021-07-10] VITALS (7 sets, daily range): BP systolic 128–180; BP diastolic 61–80; PULSE 61–77; RESP 11–23; TEMP 36.3; O2SAT 93–99
--- NOTE | 2021-07-10 08:48 | DI.RAD.S_ITS ---
PROCEDURE: PAIN C/T FACET INJ/BLK 1ST L INDICATIONS: SPINAL STENOSIS COMPARISON: [facility], , PAIN C/T INTERLAMINAR INJECT, 04/15/2021, 10:25. FINDINGS: Fluoroscopic spot filming was performed to verify placement of spinal needles at the C4-C5, C5-C6, and C6-C7 levels on the left, as labeled on the films. Appropriate location(s) of the needle tip(s) was confirmed by injection of iodinated contrast. IMPRESSION: Intraprocedural examination within normal limits. Dictated by: Mandeep Reveles M.D. on 07/10/2021 at 9:42 Approved by: Mandeep Reveles M.D. on 07/10/2021 at 9:43
[2021-07-10] MEDS: fentaNYL 100 MCG/2 ML INJ 50 MCG IV (09:34)
[2021-07-10] MEDS: MIDAZOLAM 5 MG/5 ML VIAL IV (09:34)
[2021-07-10] MEDS: BUPIVACAINE 0.5% (PF) VIAL 2 ML INJ (09:40)
[2021-07-10] MEDS: DEXAMETHASONE 10 MG/ML VIAL 30 MG INJ (09:40)
[2021-07-10] MEDS: IOPAMIDOL 15 ML VIAL 3 ML INJ (09:40)
--- NOTE | 2021-07-10 09:50 | P.PCN_ITS ---
Date/Time/Diagnoses Date of procedure: 07/10/21 Time of procedure: 09:50 Pre-procedure diagnosis: 1. FACET ARTHROPATHY 2. AXIAL NECK PAIN Post-procedure diagnosis: same Procedure Notes Procedure: 1. FLUOROSCOPICALLY GUIDED, CONTRAST-CONTROLLED LEFT C4/5, C5/6 AND C6/7 FACET JOINT INJECTIONS WITH CONSCIOUS SEDATION. Indications: Guy is referred by Dr. Diaz for treatment of Axial Neck Pain Physician: Jared Tracey Total Fluoroscopy time (seconds): 8 Total sedation minutes: 9 Complications: none Procedure in detail & Post-procedure care: DESCRIPTION OF PROCEDURE Fluoroscopically guided, contrast-controlled left C4/5, C5/6 and C6/7 facet joint injections with conscious sedation. Following review of allergy and review of potential side effects and complications, including, but not necessarily limited to, infection, allergic reaction, local tissue breakdown, stroke, temporary or permanent nerve injury and paralysis, the patient indicated that the patient understood and agreed to proceed. An informed consent document was signed by the patient, witnessed by a nurse, and placed in the patient's chart. Additionally, other treatment options including medications, modalities, and physical therapy were reviewed with the patient. After review of previous anaesthesic history and IV conscious sedation the patient was deemed safe to proceed with today?s procedure with IV conscious sedation as ASA class II designation. Safety time-out was performed to confirm patient ID, procedure to be performed and site of procedure. IV sedation was accomplished with a combination of 3mg of Versed and 50mcg of Fentanyl was administered by the RN after DO order, titrated to patient comfort during the course of the procedure while the patient remained responsive to all verbal commands In the prone position, following sterile prep and drape of the cervical spine region, the posterior aspect of the left C4/5, C5/6 and C6/7 facet joints were identified fluoroscopically. The skin was anesthetized via a 25-gauge 1.5-inch needle with 1% lidocaine solution into the corresponding facet joints. At this point, a 25-gauge 2.5-inch spinal needle was atraumatically introduced and advanced under fluoroscopic guidance into the corresponding facet joints. Following negative aspiration, injections of approximately 0.2cc of Isovue 200 confirmed interarticular placement without vascular uptake. At this point, a total of 1cc including 0.5cc or 5mg of dexamethasone combined with 0.5cc of 1% lidocaine solution was injected without complication into each of the corresponding facet joints. The procedure tolerated the procedure well without signs or symptoms of complications prior to transfer to the recovery area continued monitoring without incident. The patient was then transferred to the recovery area where they were observed for an appropriate period of time after the injection. The patient reported a VAS score of 7 prior to the procedure and a post- procedure VAS of 0. POST OP INSTRUCTIONS They were provided a Pain Log to continue to record their response to the target-specific procedure prior to their follow-up visit with their referring physician. Additionally, specific post-injection care instructions and a contact number to our office were provided if concerns arise regarding possible complications associated with the procedure are suspected.
== END 2021-07-10 10:06 | disposition home or self-care (01) ==
LOC: RAD 08:48
PROVIDERS: Family Provider Internal Medicine; PCP Internal Medicine; Referring Provider Physical Medicine & Rehabilitation; Visit Provider Physical Medicine & Rehabilitation
DX: M47.812 Spondylosis without myelopathy or radiculopathy, cervical region (principal); M54.2 Cervicalgia
CPT/HCPCS: 64490; 64491; 64492; J1100; J2250; J3010

== ENCOUNTER 2022-05-21 18:28 | Emergency (ER) | payer OTHER, SELFPAY ==
[2021-01-20 13:18] VITALS: BMI 35.6
[2022-05-21] VITALS (11 sets, daily range): BP systolic 142–210; BP diastolic 74–102; PULSE 63–115; RESP 14–22; TEMP 36.8; O2SAT 93–98; BMI 35.5
--- NOTE | 2022-05-21 18:50 | DI.RAD.S_ITS ---
PROCEDURE: XR CHEST 1V INDICATIONS: chest pain TECHNIQUE: One view of the chest was acquired. COMPARISON: [facility], , CHEST 1 VIEW, 12/11/2017, 10:20. FINDINGS: Surgical changes and devices: None. Lungs and pleura: Lungs are clear. No pleural effusions or pneumothorax. Mediastinum: Mediastinal contours appear normal. Heart size is normal. Bones and chest wall: No suspicious bony lesions. Overlying soft tissues appear unremarkable. IMPRESSION: 1. No acute cardiopulmonary disease. Dictated by: Tanmay Nguyen M.D. on 05/21/2022 at 20:25 Approved by: Tanmay Nguyen M.D. on 05/21/2022 at 20:26
--- NOTE | 2022-05-21 18:56 | PC.NURSE ---
Initially upon placing patient on hospital monitor patient was afib RVR. Patient converted self into NSR of 72.
[2022-05-21 18:59] LABS: Add Manual Diff / Slide Review NO; Basophils Absolute Auto 100 /uL (0-100); Basophils Percent Auto 1.3 % (0-2); Eosinophils Absolute Auto 300 /uL (0-450); Eosinophils Percent Auto 4.9 % (2-4); Hematocrit 48.5 % (41-53); Hemoglobin 16.6 g/dL (13.5-17.5); Lymphocytes Absolute Auto 1500 /uL (1100-4500); Lymphocytes Percent Auto 26.9 % (25-40); Mean Corpuscular HGB Conc 34.1 % (30-36); Mean Corpuscular Hemoglobin 31.7 PG (26-34); Mean Corpuscular Volume 92.9 fL (80-100); Monocytes Absolute Auto 700 /uL (0-900); Monocytes Percent Auto 12.6 % (3-14); Neutrophils Absolute Auto 3100 /uL (1500-7000); Neutrophils Percent Auto 54.3 % (50-75); Platelet Count 180 X10^3/uL (150-400); Red Blood Cell Count 5.22 X10^6/uL (4.5-5.9); Red Cell Distribution Width 15.6 % (11.6-14.8); White Blood Cell Count 5.7 X10^3/uL (4.5-11.0)
[2022-05-21 19:22] LABS: Alanine Aminotransferase 35 IU/L (<50); Albumin 4.8 g/dL (3.5-5.0); Albumin Globulin Ratio 1.3 (1.0-2.8); Alkaline Phosphatase 74 U/L (38-126); Aspartate Aminotransferase 46 IU/L (17-59); Bilirubin Total 1.7 mg/dL (0.2-1.3); Blood Urea Nitrogen 26 mg/dL (9-20); Calcium 9.7 mg/dL (8.4-10.2); Carbon Dioxide 23 mmol/L (22-32); Chloride 103 mmol/L (98-107); Creatine Kinase 212 U/L (55-170); Estimated Glomerular Filt Rate > 60 mL/min (>60); Globulin 3.8 g/dL (1.7-4.1); Glucose 123 mg/dL (80-110); Lipase 143 U/L (23-300); Magnesium 2.3 mg/dL (1.6-2.3); Sodium 138 mmol/L (137-145); Total Protein 8.6 g/dL (6.3-8.2)
--- NOTE | 2022-05-21 19:24 | ED.ARRPALP ---
HPI - Arrhythmia/Palpitations General Chief Complaint: Arrhythmia/Palpitations Stated Complaint: AFIB/SOB Time Seen by Provider: 05/21/22 19:06 Source: patient Mode of arrival: Family Vehicle Limitations: no limitations History of Present Illness HPI narrative: This is a 67-year-old male who presents with complaint of fast heart rate intermittently with known atrial fibrillation, hypertension, dyslipidemia, gout, diabetes and psoriasis. Patient states he was started on Pradaxa last week by his ciso Dr. Rasmussen after wearing a ZIO patch. He was found to have atrial fibrillation 16% of the time. Patient states today he felt his heart fluttering in his chest, it 1 point it was very fast and it felt like pressure in his central chest without radiation, he states this has occurred occasionally but not every time. He felt little dizzy but no syncope or lightheadedness. No shortness of breath. Patient denies any new swelling in extremities. No nausea or vomiting no diaphoresis. No issues with bowel movements or urination. Patient states Pradaxa was initiated because of his ZIO patch and found to be in AFib so frequently. He did not have any other medications adjusted is on a beta-myles at this time. He is never had any cardiac stents or cardiac interventions. Allergic to codeine. Quit smoking in 2000 coming as 1 or 2 alcoholic drinks yearly, denies illicit. Related Data Home Medications Medication Instructions Recorded Confirmed allopurinol 300 mg tablet 300 mg PO QDAY ##0 12/29/10 04/23/22 ramipril 10 mg capsule 10 mg PO BID ##0 09/17/11 04/23/22 albuterol sulfate 90 mcg/actuation 1 puff inhalation Q4-6H PRN Dyspnea 08/14/18 04/23/22 aerosol inhaler atorvastatin 40 mg PO BEDTIME 08/14/18 04/23/22 carvedilol 12.5 mg tablet 25 mg PO BID 08/14/18 04/23/22 furosemide 20 mg tablet 20 mg PO DAILY 08/14/18 04/23/22 levothyroxine 75 mcg PO QAM 08/14/18 04/23/22 Respironics Remstar CPAP #1 ea 01/24/19 04/23/22 epinephrine 0.3 mg/0.3 mL PRN Anaphylaxis 10/08/20 04/23/22 injection, auto-injector (EpiPen) empagliflozin 25 mg tablet 25 mg PO DAILY 10/10/20 04/23/22 (Jardiance) amitriptyline 10 mg tablet 20 mg PO BEDTIME 10/20/21 04/23/22 glimepiride 2 mg tablet 4 mg PO DAILY 1 PM 10/20/21 04/23/22 aspirin 81 mg tablet,delayed 81 mg PO DAILY 04/23/22 04/23/22 release (Adult Aspirin Regimen) metformin 500 mg tablet 500 mg PO BID 04/23/22 04/23/22 Allergies Allergy/AdvReac Type Severity Reaction Status Date / Time bee venom protein (honey bee) Allergy Severe Anaphylaxis Verified 04/23/22 09:39 codeine Allergy Intermediate HIVES, Verified 04/23/22 09:39 SWELLING meloxicam Allergy Intermediate Rash Verified 04/23/22 09:39 methotrexate AdvReac Severe Gastrointestinal Verified 04/23/22 09:39 Upset Review of Systems Review of Systems ROS Unobtainable: All systems reviewed & are unremarkable except as noted in HPI and below Patient History Medical History Cervical arthritis with myelopathy Cervical radiculopathy Cervical stenosis of spinal canal Diabetes Diabetic peripheral neuropathy associated with type 2 diabetes mellitus Facet arthropathy, cervical Former smoker GERD (gastroesophageal reflux disease) Gout Hyperlipidemia Hypertension Hypothyroidism Inflammatory bowel disease Lumbar stenosis with neurogenic claudication Obesity (BMI 30-39.9) Obstructive sleep apnea Psoriasis Spinal stenosis Type 2 diabetes mellitus Surgical History History of appendectomy History of carpal tunnel release of both wrists History of cholecystectomy History of laparoscopic cholecystectomy (~2010) History of lumbar fusion (~1988) History of lumbar laminectomy (~1985) History of lumbar laminectomy (~2010) History of resection of small bowel S/P epidural steroid injection Status post cervical spinal fusion Social History marital status: number of children: 1 household members: spouse lives independently: Yes caregiver/support person: No 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 No JVD. No swelling bilateral lower extremities. RESPIRATORY: Breath sounds equal bilaterally, no wheezes rales or rhonchi. ABDOMEN: Soft, nontender. Normoactive bowel sounds all 4 quadrants. No guarding or rebound, rigidity, no mass : No CVA tenderness EXTREMITIES: Normal range of motion, no clubbing or edema. Neurovascularly intact NEUROLOGICAL: Cranial nerves II through XII grossly intact. Moving all extremities SKIN: Warm, dry, no petechiae, no rashes or lesions. Initial Vital Signs Initial Vital Signs: Vital Signs Temperature 98.3 F 05/21/22 18:38 Pulse Rate 93 H 05/21/22 18:38 Respiratory Rate 22 05/21/22 18:38 Blood Pressure 210/102 H 05/21/22 18:38 Pulse Oximetry 98 05/21/22 18:38 Oxygen Delivery Method 05/21/22 18:38 Course Orders Ordered: ED Orders 05/21/22 18:00 BNP [NT-proBNP (BNP-Adult 18+)] Stat 05/21/22 18:50 XR chest 1V Stat Complete Blood Count AUTO DIFF Stat Comprehensive Metabolic Panel Stat Lipase Stat Magnesium Stat Troponin & CK Cardiac Panel Stat 05/21/22 19:04 EKG-12 Lead Stat 05/21/22 19:43 COVID19 -Nasal RAPID/Pre-Proc Stat 05/21/22 21:09 Trop I [Troponin I] Stat 05/21/22 21:14 EKG-12 Lead Stat Vital Signs Vital signs: Vital Signs - 8 hr 05/21/22 18:38 05/21/22 18:54 05/21/22 19:00 Temperature 98.3 F Pulse Rate 93 H 115 H Respiratory Rate 22 20 Blood Pressure 210/102 H 160/83 H Pulse Oximetry 98 95 Oxygen Delivery Method Room Air 05/21/22 19:00 05/21/22 19:30 05/21/22 19:30 Temperature Pulse Rate 73 74 Respiratory Rate 17 17 Blood Pressure 142/76 H Pulse Oximetry 95 94 Oxygen Delivery Method 05/21/22 20:00 05/21/22 20:00 05/21/22 20:30 Temperature Pulse Rate 69 Respiratory Rate 15 Blood Pressure 149/79 H 142/76 H Pulse Oximetry 94 Oxygen Delivery Method 05/21/22 20:30 05/21/22 21:00 05/21/22 21:01 Temperature Pulse Rate 67 65 Respiratory Rate 15 15 Blood Pressure 169/79 H Pulse Oximetry 93 94 Oxygen Delivery Method 05/21/22 21:01 05/21/22 21:30 05/21/22 21:31 Temperature Pulse Rate 65 65 Respiratory Rate 14 14 Blood Pressure 166/74 H Pulse Oximetry 94 94 Oxygen Delivery Method 05/21/22 21:31 05/21/22 22:00 05/21/22 22:00 Temperature Pulse Rate 63 64 Respiratory Rate 16 15 Blood Pressure 161/82 H Pulse Oximetry 93 95 Oxygen Delivery Method MDM - Arrhythmia/Palpitations Lab Data Result diagrams: 05/21/22 18:50 05/21/22 18:50 Labs: Lab Results 05/21/22 05/21/22 05/21/22 Range/Units 18:00 18:50 18:50 WBC 5.7 (4.5-11.0) X10^3/uL RBC 5.22 (4.5-5.9) X10^6/uL Hgb 16.6 (13.5-17.5) g/dL Hct 48.5 (41-53) % MCV 92.9 (80-100) fL MCH 31.7 (26-34) PG MCHC 34.1 (30-36) % RDW 15.6 H (11.6-14.8) % Plt Count 180 (150-400) X10^3/uL Neut % (Auto) 54.3 (50-75) % Lymph % (Auto) 26.9 (25-40) % [place] % (Auto) 12.6 (3-14) % Eos % (Auto) 4.9 H (2-4) % Baso % (Auto) 1.3 (0-2) % Neut # (Auto) 3100 (0919-9717) /uL Lymph # (Auto) 1500 (0991-9883) /uL [place] # (Auto) 700 (0-900) /uL Eos # (Auto) 300 (0-450) /uL Baso # (Auto) 100 (0-100) /uL Sodium 138 (137-145) mmol/L Potassium 4.8 (3.4-5.1) mmol/L Chloride 103 (98-107) mmol/L Carbon Dioxide 23 (22-32) mmol/L BUN 26 H (9-20) mg/dL Creatinine 1.18 (0.66-1.25) mg/dL Estimated GFR > 60 (>60) mL/min BUN/Creatinine Ratio 22.0 (6-22) Glucose 123 H (80-110) mg/dL Calcium 9.7 (8.4-10.2) mg/dL Magnesium 2.3 (1.6-2.3) mg/dL Total Bilirubin 1.7 H (0.2-1.3) mg/dL AST 46 (17-59) IU/L ALT 35 (<50) IU/L Alkaline Phosphatase 74 (38-126) U/L Total Creatine Kinase 212 H (55-170) U/L CK-MB (CK-2) 3.72 H (<2.37) ng/mL CK-MB (CK-2) Rel Index 1.8 (1.5-5.0) % Troponin I < 0.012 (0.01-0.034) ng/mL NT-Pro-B Natriuret Pep 77 (<125) pg/mL Total Protein 8.6 H (6.3-8.2) g/dL Albumin 4.8 (3.5-5.0) g/dL Globulin 3.8 (1.7-4.1) g/dL Albumin/Globulin Ratio 1.3 (1.0-2.8) Lipase 143 (23-300) U/L SARS-CoV-2 (PCR) (Negative) 05/21/22 05/21/22 Range/Units 19:43 21:09 WBC (4.5-11.0) X10^3/uL RBC (4.5-5.9) X10^6/uL Hgb (13.5-17.5) g/dL Hct (41-53) % MCV (80-100) fL MCH (26-34) PG MCHC (30-36) % RDW (11.6-14.8) % Plt Count (150-400) X10^3/uL Neut % (Auto) (50-75) % Lymph % (Auto) (25-40) % [place] % (Auto) (3-14) % Eos % (Auto) (2-4) % Baso % (Auto) (0-2) % Neut # (Auto) (3879-2090) /uL Lymph # (Auto) (4136-1586) /uL [place] # (Auto) (0-900) /uL Eos # (Auto) (0-450) /uL Baso # (Auto) (0-100) /uL Sodium (137-145) mmol/L Potassium (3.4-5.1) mmol/L Chloride (98-107) mmol/L Carbon Dioxide (22-32) mmol/L BUN (9-20) mg/dL Creatinine (0.66-1.25) mg/dL Estimated GFR (>60) mL/min BUN/Creatinine Ratio (6-22) Glucose (80-110) mg/dL Calcium (8.4-10.2) mg/dL Magnesium (1.6-2.3) mg/dL Total Bilirubin (0.2-1.3) mg/dL AST (17-59) IU/L ALT (<50) IU/L Alkaline Phosphatase (38-126) U/L Total Creatine Kinase (55-170) U/L CK-MB (CK-2) (<2.37) ng/mL CK-MB (CK-2) Rel Index (1.5-5.0) % Troponin I < 0.012 (0.01-0.034) ng/mL NT-Pro-B Natriuret Pep (<125) pg/mL Total Protein (6.3-8.2) g/dL Albumin (3.5-5.0) g/dL Globulin (1.7-4.1) g/dL Albumin/Globulin Ratio (1.0-2.8) Lipase (23-300) U/L SARS-CoV-2 (PCR) Negative (Negative) Imaging Data Chest x-ray: Radiologist's Impresson: [address] [address] XRay Report Signed Patient: Guy Eisenberg MR#: [id number] : 1955 Acct:[id number] Age/Sex: 67 / M Date of Service: 05/21/22 Loc: ED Accession Number: [id number] ?? Procedure: XR chest 1V Ordering Provider: Stephanie Castellon D.O. PROCEDURE:? XR CHEST 1V ? INDICATIONS:? chest pain ? TECHNIQUE:? One view of the chest was acquired.? ? COMPARISON:? [facility], , CHEST 1 VIEW, 12/11/2017, 10:20. ? FINDINGS:? ? Surgical changes and devices:? None.? ? Lungs and pleura:? Lungs are clear.? No pleural effusions or pneumothorax.? ? Mediastinum:? Mediastinal contours appear normal.? Heart size is normal.? ? Bones and chest wall:? No suspicious bony lesions.? Overlying soft tissues appear unremarkable.? ? IMPRESSION:? ? 1.? No acute cardiopulmonary disease. ? ? ? Dictated by: Tanmay Nguyen M.D. on 05/21/2022 at 20:25 ? ? Approved by: Tanmay Nguyen M.D. on 05/21/2022 at 20:26?? ECG Data Attestation: I personally reviewed and interpreted this ECG as follows: Interpretation: EKG 1 AFib with RVR, rate of 102 QRS is 72 QTC of 430. No acute ST changes noted. EKG 2. Sinus rhythm rate of 70 2p are 154 QRS is 76 and QTC of 413. No acute ST segment changes appreciated. Patient has priors with no acute changes. EKG 3 sinus rhythm rate of 65 CA 156 QRS 80 QTC of 426. No acute ST changes appreciated. MDM Narrative Medical decision making narrative: This is a 67-year-old male who presents with AFib RVR that converted on its own without any intervention. Patient was having chest pain until his tachycardia resolved. Initial workup including electrolytes show no significant changes, cardiac enzyme, no dynamic EKG changes other than resolution of his AFib RVR to a sinus rhythm with negative chest x-ray. Plan for repeat troponin, EKG if these are reassuring patient discharged home. Discharge Plan Departure Patient Disposition: Home Clinical Impression: Atrial fibrillation with rapid ventricular response Activity Restrictions/Additional Instructions: Follow-up with your physician for recheck. Your EKG and telemetry show atrial fib with a rapid ventricular response earlier but you cardioverted to a normal rhythm on your own. You can continue home medications as prescribed you can take an extra dose of your carvedilol if you have frequent recurrent fast heartbeat but be sure to monitor your blood pressure when doing this. Please return for new or worsening chest pain, shortness of breath, persistent fast heartbeat, lightheadedness or passing out, new swelling in her extremities or other new or concerning symptoms. Prescriptions: No Action allopurinol 300 MG tablet 300 mg PO QDAY Qty: 0 ramipril 10 MG capsule 10 mg PO BID Qty: 0 albuterol sulfate 90 mcg/actuation Hfa Aerosol Inhaler 1 puff INHALATION Q4-6H PRN (Reason: Dyspnea) Label Comments: 'I HAVEN'T NEEDED IT IN A LONG TIME carvedilol 12.5 mg Tablet 25 mg PO BID furosemide 20 mg Tablet 20 mg PO DAILY levothyroxine 0.075 mcg 75 mcg PO QAM atorvastatin tablet 40 mg PO BEDTIME metformin 500 mg tablet 500 mg PO BID epinephrine [EpiPen] 0.3 mg/0.3 mL Auto-Injector PRN (Reason: Anaphylaxis) Jardiance 25 mg Tablet 25 mg PO DAILY glimepiride 2 mg tablet 4 mg PO DAILY amitriptyline 10 mg tablet 20 mg PO BEDTIME (DME) Respironics Remstar CPAP Qty: 1 Dose Instruction: As directed Label Comments: Pressure: 6-12 cmH2O DME: [facility] Rx Instructions: As directed aspirin [Adult Aspirin Regimen] 81 mg tablet,delayed release (DR/EC) 81 mg PO DAILY Referrals: Lashaun Dawson MD [Primary Care Provider] - Visit Report Forms: Patient Portal/API
[2022-05-21 19:30] LABS: HEMOLYSIS 127 (0-50)
[2022-05-21 19:31] LABS: Potassium 4.8 mmol/L (3.4-5.1)
[2022-05-21 19:34] LABS: Troponin I < 0.012 ng/mL (0.01-0.034)
[2022-05-21 19:38] LABS: CKMB % Relative Index 1.8 % (1.5-5.0); Creatine Kinase MB 3.72 ng/mL (<2.37)
[2022-05-21 20:09] LABS: NT-proBNP (BNP-Adult 18+) 77 pg/mL (<125)
[2022-05-21 20:22] LABS: COVID19 -Nasal RAPID Negative (Negative)
[2022-05-21 21:40] LABS: Troponin I < 0.012 ng/mL (0.01-0.034)
== END 2022-05-21 22:08 | disposition home or self-care (01) ==
PROVIDERS: Emergency Provider Emergency Medicine; Family Provider Internal Medicine; PCP Internal Medicine
DX: I48.20 Chronic atrial fibrillation, unspecified (principal); Z79.01 Long term (current) use of anticoagulants; R07.9 Chest pain, unspecified; Z20.822 Contact with and (suspected) exposure to COVID-19
CPT/HCPCS: 36415; 71045; 80053; 82550; 82553; 83690; 83735; 83880; 84484; 85025; 87635; 93005; 99283; C9803

== ENCOUNTER 2022-06-05 09:12 | Emergency (ER) | payer OTHER, SELFPAY ==
[2021-01-20 13:18] VITALS: BMI 35.6
[2022-06-05] VITALS (33 sets, daily range): BP systolic 85–188; BP diastolic 53–88; PULSE 89–111; RESP 14–22; TEMP 36.7; O2SAT 78–100; BMI 34.2
--- NOTE | 2022-06-05 09:22 | DI.RAD.S_ITS ---
PROCEDURE: XR CHEST 1V INDICATIONS: chest pain TECHNIQUE: One view of the chest was acquired. COMPARISON: [facility], CR, XR CHEST 1V, 05/21/2022, 19:16. FINDINGS: Surgical changes and devices: None. Lungs and pleura: Lungs are clear. No pleural effusions or pneumothorax. Mediastinum: Mediastinal contours appear normal. Heart size is normal. Bones and chest wall: No suspicious bony lesions. Overlying soft tissues appear unremarkable. IMPRESSION: No acute cardiopulmonary abnormalities or focal airspace disease. Dictated by: Amando Abarca M.D. on 06/05/2022 at 9:53 Approved by: Amando Abarca M.D. on 06/05/2022 at 9:54
--- NOTE | 2022-06-05 09:23 | ED_ITS ---
HPI - Arrhythmia/Palpitations General Chief Complaint: Arrhythmia/Palpitations Stated Complaint: sent by cardiolgy thania dunbar Time Seen by Provider: 06/05/22 09:22 Source: patient Mode of arrival: Wheelchair History of Present Illness HPI narrative: Patient sent here by cardiology office, I spoke with coat hanger shaper machine operator Dr. Bucio, patient seen here May 21 for atrial fibrillation. Spontaneously converted. Patient is on Pradaxa twice a day. Today's appointment was followed from that visit. During course of office visit patient became very diaphoretic and weak. Patient in atrial fibrillation but not RVR according to coat hanger shaper machine operator. Blood pressure stable in the office. Being sent here for further evaluation. No altered mental status or confusion. Patient states felt the same way on the of this month. No chest pain no palpitations. No headache. Patient diagnosed with COVID 5 days ago. Has had cough and congestion. Related Data Home Medications Medication Instructions Recorded Confirmed allopurinol 300 mg tablet 300 mg PO QDAY ##0 12/29/10 04/23/22 ramipril 10 mg capsule 10 mg PO BID ##0 09/17/11 04/23/22 albuterol sulfate 90 mcg/actuation 1 puff inhalation Q4-6H PRN Dyspnea 08/14/18 04/23/22 aerosol inhaler atorvastatin 40 mg PO BEDTIME 08/14/18 04/23/22 carvedilol 12.5 mg tablet 25 mg PO BID 08/14/18 04/23/22 furosemide 20 mg tablet 20 mg PO DAILY 08/14/18 04/23/22 levothyroxine 75 mcg PO QAM 08/14/18 04/23/22 Respironics Remstar CPAP #1 ea 01/24/19 04/23/22 epinephrine 0.3 mg/0.3 mL PRN Anaphylaxis 10/08/20 04/23/22 injection, auto-injector (EpiPen) empagliflozin 25 mg tablet 25 mg PO DAILY 10/10/20 04/23/22 (Jardiance) amitriptyline 10 mg tablet 20 mg PO BEDTIME 10/20/21 04/23/22 glimepiride 2 mg tablet 4 mg PO DAILY 1 PM 10/20/21 04/23/22 aspirin 81 mg tablet,delayed 81 mg PO DAILY 04/23/22 04/23/22 release (Adult Aspirin Regimen) metformin 500 mg tablet 500 mg PO BID 04/23/22 04/23/22 Allergies Allergy/AdvReac Type Severity Reaction Status Date / Time bee venom protein (honey bee) Allergy Severe Anaphylaxis Verified 06/05/22 09:21 codeine Allergy Intermediate HIVES, Verified 06/05/22 09:21 SWELLING meloxicam Allergy Intermediate Rash Verified 06/05/22 09:21 methotrexate AdvReac Severe Gastrointestinal Verified 06/05/22 09:21 Upset Review of Systems Review of Systems Narrative: GENERAL: Positive for chills, fatigue, malaise, fever, sweats. HEENT: Denies sinus pain, ear pain, sore throat RESPIRATORY: Denies dyspnea, positive cough CARDIOVASCULAR: Denies chest pain, palpitations GASTROINTESTINAL: Denies nausea, vomiting, abdominal pain : Denies dysuria, frequency, hematuria MUSCULOSKELETAL: denies muscle or bony pain SKIN: Denies rash, skin lesions, positive diaphoresis NEUROLOGIC: Denies weakness, numbness ROS Unobtainable: All systems reviewed & are unremarkable except as noted in HPI and below Patient History Medical History Cervical arthritis with myelopathy Cervical radiculopathy Cervical stenosis of spinal canal Diabetes Diabetic peripheral neuropathy associated with type 2 diabetes mellitus Facet arthropathy, cervical Former smoker GERD (gastroesophageal reflux disease) Gout Hyperlipidemia Hypertension Hypothyroidism Inflammatory bowel disease Lumbar stenosis with neurogenic claudication Obesity (BMI 30-39.9) Obstructive sleep apnea Psoriasis Spinal stenosis Type 2 diabetes mellitus Surgical History History of appendectomy History of carpal tunnel release of both wrists History of cholecystectomy History of laparoscopic cholecystectomy (~2010) History of lumbar fusion (~1988) History of lumbar laminectomy (~1985) History of lumbar laminectomy (~2010) History of resection of small bowel S/P epidural steroid injection Status post cervical spinal fusion Social History marital status: number of children: 1 household members: spouse lives independently: Yes caregiver/support person: No 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 EYES: Pupils equal round No scleral icterus. ENT: Mucous membranes moist. NECK: Trachea midline. CARDIOVASCULAR: Irregularly irregular, tachycardic RESPIRATORY: Clear to auscultation. Breath sounds equal bilaterally. No wheezes, rales, or rhonchi. GASTROINTESTINAL: Abdomen soft, non-tender EXTREMITIES: No gross deformities. BACK: No flank tenderness. NEURO: AOx4. SKIN: Warm and moist. PSYCH: Not anxious, is cooperative Initial Vital Signs Initial Vital Signs: Vital Signs Temperature 98.0 F 06/05/22 09:15 Pulse Rate 100 H 06/05/22 09:15 Respiratory Rate 15 06/05/22 09:15 Blood Pressure 100/59 L 06/05/22 09:15 Pulse Oximetry 100 06/05/22 09:15 Oxygen Delivery Method 06/05/22 09:15 Scores NIH Stroke Scale Level of Conciousness: Alert, keenly responsive Ask month/age: Answers both questions correctly. Open/close eyes, close hand: Performs both tasks correctly Best gaze horizontal: Normal Visual zuniga: No visual loss Facial palsy: Normal symetrical movement Left arm drift: No drift for full 10 sec Right arm drift: No drift for full 10 sec Left leg drift: No drift for full 5 sec Right leg drift: No drift for full 5 sec Limb ataxia: Absent Sensory on face/arms/legs: Normal, no sensory loss Best language: No aphasia, normal Dysarthria: Normal Extinction or inattention: No abnormality Total NIH Stroke scale score: 0 Course Course Course Narrative: No new issues during course of stay Orders Ordered: Discontinued Medications Sodium Chloride (Normal Saline 0.9%) 1,000 mls @ 1,000 mls/hr IV BOLUS ONE Stop: 06/05/22 10:21 Last Infusion: 06/05/22 10:57 Dose: 0 mls/hr Documented By: Admin: 06/05/22 09:43 Dose: 1,000 mls/hr Documented By: SEMAJ Sodium Chloride (Normal Saline 0.9%) 1,000 mls @ 1,000 mls/hr IV BOLUS ONE Stop: 06/05/22 12:43 Last Infusion: 06/05/22 12:56 Dose: 0 mls/hr Documented By: Admin: 06/05/22 11:45 Dose: 1,000 mls/hr Documented By: SEMAJ Reevaluation(s) Reevaluation #1: Patient feeling much better after IV fluids. Blood pressure has improved with IV hydration, 2 L normal saline Time: 13:44 Reevaluation #2: Patient at this time denies any slurred speech facial droop headache. Does feel better after IV fluids. Reviewed results with patient. Spoke with him sometimes with COVID it has bimodal symptoms. Originally feels bad then improves and then feel bad again. This may be the case with him. He tested positive 5 days ago. Fever broke on Wednesday. Started feeling better until today. He does desire discharge home. Not toxic. Return precautions reviewed with him. Blood pressure 144/72. Patient monitor shows occasional sinus rhythm. Paroxysmal AFib. Rate 86 Consultations Consultation #1: Spoke with patient's coat hanger shaper machine operator again, dr bucio, reviewed EKG and patient does have paroxysmal AFib, no indication at this time to cardiovert. Patient is on Pradaxa. Appropriate for discharge home. Time: 13:45 Vital Signs Vital signs: Vital Signs - 8 hr 06/05/22 09:15 06/05/22 09:18 06/05/22 09:18 Temperature 98.0 F Pulse Rate 100 H Respiratory Rate 15 Blood Pressure 100/59 L 100/59 L Pulse Oximetry 100 78 L Oxygen Delivery Method Room Air 06/05/22 09:30 06/05/22 09:30 06/05/22 09:47 Temperature Pulse Rate 100 H Respiratory Rate 22 Blood Pressure 91/60 85/65 L Pulse Oximetry 95 Oxygen Delivery Method 06/05/22 09:47 06/05/22 09:57 06/05/22 09:57 Temperature Pulse Rate 100 H 96 H Respiratory Rate 18 18 Blood Pressure 97/53 L Pulse Oximetry 96 96 Oxygen Delivery Method 06/05/22 10:00 06/05/22 10:00 06/05/22 10:05 Temperature Pulse Rate 108 H Respiratory Rate 18 Blood Pressure 99/63 98/54 L Pulse Oximetry 92 Oxygen Delivery Method 06/05/22 10:05 06/05/22 10:10 06/05/22 10:10 Temperature Pulse Rate 101 H 101 H Respiratory Rate 16 17 Blood Pressure 113/66 Pulse Oximetry 95 95 Oxygen Delivery Method 06/05/22 10:15 06/05/22 10:15 06/05/22 10:20 Temperature Pulse Rate 98 H Respiratory Rate 17 Blood Pressure 93/60 108/74 Pulse Oximetry 95 Oxygen Delivery Method 06/05/22 10:20 06/05/22 10:26 06/05/22 10:26 Temperature Pulse Rate 104 H 108 H Respiratory Rate 16 17 Blood Pressure 101/58 L Pulse Oximetry 95 97 Oxygen Delivery Method 06/05/22 10:30 06/05/22 10:30 06/05/22 10:35 Temperature Pulse Rate 103 H Respiratory Rate 15 Blood Pressure 104/59 L 105/65 Pulse Oximetry 94 Oxygen Delivery Method 06/05/22 10:35 06/05/22 10:40 06/05/22 10:40 Temperature Pulse Rate 104 H 104 H Respiratory Rate 17 20 Blood Pressure 113/65 Pulse Oximetry 93 94 Oxygen Delivery Method 06/05/22 10:45 06/05/22 10:45 06/05/22 10:50 Temperature Pulse Rate 108 H 109 H Respiratory Rate 19 18 Blood Pressure 95/57 L Pulse Oximetry 92 91 Oxygen Delivery Method 06/05/22 10:50 06/05/22 10:55 06/05/22 10:55 Temperature Pulse Rate 110 H Respiratory Rate 18 Blood Pressure 107/66 110/58 L Pulse Oximetry 93 Oxygen Delivery Method 06/05/22 11:08 06/05/22 11:10 06/05/22 11:10 Temperature Pulse Rate 89 106 H Respiratory Rate 19 Blood Pressure 96/61 Pulse Oximetry 99 100 Oxygen Delivery Method 06/05/22 11:20 06/05/22 11:20 06/05/22 11:30 Temperature Pulse Rate 111 H 106 H Respiratory Rate 19 16 Blood Pressure 112/62 Pulse Oximetry 98 96 Oxygen Delivery Method 06/05/22 11:40 06/05/22 11:40 06/05/22 12:00 Temperature Pulse Rate 99 H Respiratory Rate 17 Blood Pressure 128/72 148/75 H Pulse Oximetry 96 Oxygen Delivery Method 06/05/22 12:00 06/05/22 12:20 06/05/22 12:20 Temperature Pulse Rate 102 H 100 H Respiratory Rate 14 15 Blood Pressure 163/67 H Pulse Oximetry 98 95 Oxygen Delivery Method 06/05/22 12:30 06/05/22 12:40 06/05/22 12:40 Temperature Pulse Rate 97 H 96 H Respiratory Rate 14 16 Blood Pressure 167/88 H Pulse Oximetry 94 96 Oxygen Delivery Method 06/05/22 13:00 06/05/22 13:01 06/05/22 13:01 Temperature Pulse Rate 95 H 97 H Respiratory Rate 17 16 Blood Pressure 171/72 H Pulse Oximetry 96 96 Oxygen Delivery Method 06/05/22 13:21 06/05/22 13:21 06/05/22 13:30 Temperature Pulse Rate 92 H 94 H Respiratory Rate 14 14 Blood Pressure 165/82 H Pulse Oximetry 96 95 Oxygen Delivery Method MDM - Arrhythmia/Palpitations Differential Diagnosis Differential diagnosis: Likely palpitations, artial fibrillation, artial flutter, supraventricular tachycardia, ventricular tachycardia and WPW Lab Data Result diagrams: 06/05/22 09:06/05/22 09: Labs: Lab Results 06/05/22 06/05/22 06/05/22 Range/Units 09:22 09: 09:22 WBC 4.5 (4.5-11.0) X10^3/uL RBC 5.51 (4.5-5.9) X10^6/uL Hgb 17.4 (13.5-17.5) g/dL Hct 52.1 (41-53) % MCV 94.6 (80-100) fL MCH 31.6 (26-34) PG MCHC 33.4 (30-36) % RDW 15.6 H (11.6-14.8) % Plt Count 167 (150-400) X10^3/uL Neut % (Auto) 46.1 L (50-75) % Lymph % (Auto) 32.7 (25-40) % Smyth % (Auto) 14.6 H (3-14) % Eos % (Auto) 5.3 H (2-4) % Baso % (Auto) 1.3 (0-2) % Neut # (Auto) 2100 (3682-8556) /uL Lymph # (Auto) 1500 (1072-2062) /uL Smyth # (Auto) 700 (0-900) /uL Eos # (Auto) 200 (0-450) /uL Baso # (Auto) 100 (0-100) /uL PT 16.4 H (10.1-12.7) SECONDS INR 1.4 H (0.9-1.3) APTT 80 H* (26-36) SECONDS D-Dimer < 215 (<500) ng/ml Sodium 138 (137-145) mmol/L Potassium 4.5 (3.4-5.1) mmol/L Chloride 100 (98-107) mmol/L Carbon Dioxide 24 (22-32) mmol/L BUN 23 H (9-20) mg/dL Creatinine 1.45 H (0.66-1.25) mg/dL Estimated GFR 52 L (>60) mL/min BUN/Creatinine Ratio 15.9 (6-22) Glucose 238 H (80-110) mg/dL Lactate (0.7-2.1) mmol/L Calcium 9.4 (8.4-10.2) mg/dL Total Bilirubin 1.6 H (0.2-1.3) mg/dL AST 41 (17-59) IU/L ALT 36 (<50) IU/L Alkaline Phosphatase 92 (38-126) U/L Total Creatine Kinase 179 H (55-170) U/L CK-MB (CK-2) 2.13 (<2.37) ng/mL CK-MB (CK-2) Rel Index 1.2 L (1.5-5.0) % Troponin I < 0.012 (0.01-0.034) ng/mL NT-Pro-B Natriuret Pep (<125) pg/mL Total Protein 8.6 H (6.3-8.2) g/dL Albumin 4.6 (3.5-5.0) g/dL Globulin 4.0 (1.7-4.1) g/dL Albumin/Globulin Ratio 1.2 (1.0-2.8) Procalcitonin 0.09 (<0.5) ng/mL Urine Color Urine Appearance Urine pH (4.5-8.0) Ur Specific [place] (1.000-1.035) Urine Protein (Negative) Urine Glucose (UA) (Negative) g/dL Urine Ketones (NEGATIVE) Urine Occult Blood (Negative) Urine Nitrate (Negative) Urine Bilirubin (NEGATIVE) Urine Urobilinogen (0.2) E.U./dL Ur Leukocyte Esterase (NEGATIVE) Urine RBC (0-5/HPF) Urine WBC (0-5/HPF) Ur Squamous Epith Cells (0-5/HPF) Urine Bacteria (None) Ur Culture Indicated? 06/05/22 06/05/22 06/05/22 Range/Units 09:22 09:22 11:08 WBC (4.5-11.0) X10^3/uL RBC (4.5-5.9) X10^6/uL Hgb (13.5-17.5) g/dL Hct (41-53) % MCV (80-100) fL MCH (26-34) PG MCHC (30-36) % RDW (11.6-14.8) % Plt Count (150-400) X10^3/uL Neut % (Auto) (50-75) % Lymph % (Auto) (25-40) % Smyth % (Auto) (3-14) % Eos % (Auto) (2-4) % Baso % (Auto) (0-2) % Neut # (Auto) (2779-2031) /uL Lymph # (Auto) (9558-7654) /uL Smyth # (Auto) (0-900) /uL Eos # (Auto) (0-450) /uL Baso # (Auto) (0-100) /uL PT (10.1-12.7) SECONDS INR (0.9-1.3) APTT (26-36) SECONDS D-Dimer (<500) ng/ml Sodium (137-145) mmol/L Potassium (3.4-5.1) mmol/L Chloride (98-107) mmol/L Carbon Dioxide (22-32) mmol/L BUN (9-20) mg/dL Creatinine (0.66-1.25) mg/dL Estimated GFR (>60) mL/min BUN/Creatinine Ratio (6-22) Glucose (80-110) mg/dL Lactate 2.0 (0.7-2.1) mmol/L Calcium (8.4-10.2) mg/dL Total Bilirubin (0.2-1.3) mg/dL AST (17-59) IU/L ALT (<50) IU/L Alkaline Phosphatase (38-126) U/L Total Creatine Kinase (55-170) U/L CK-MB (CK-2) (<2.37) ng/mL CK-MB (CK-2) Rel Index (1.5-5.0) % Troponin I (0.01-0.034) ng/mL NT-Pro-B Natriuret Pep 813 H (<125) pg/mL Total Protein (6.3-8.2) g/dL Albumin (3.5-5.0) g/dL Globulin (1.7-4.1) g/dL Albumin/Globulin Ratio (1.0-2.8) Procalcitonin (<0.5) ng/mL Urine Color Yellow Urine Appearance Clear Urine pH 5.0 (4.5-8.0) Ur Specific [place] <=1.005 (1.000-1.035) Urine Protein Negative (Negative) Urine Glucose (UA) 2+ H (Negative) g/dL Urine Ketones Negative (NEGATIVE) Urine Occult Blood Negative (Negative) Urine Nitrate Negative (Negative) Urine Bilirubin Negative (NEGATIVE) Urine Urobilinogen 0.2 (0.2) E.U./dL Ur Leukocyte Esterase Negative (NEGATIVE) Urine RBC None seen (0-5/HPF) Urine WBC 0-1/hpf (0-5/HPF) Ur Squamous Epith Cells 0-1 /hpf (0-5/HPF) Urine Bacteria Few (2-10) H (None) Ur Culture Indicated? Cult not indicated Point of Care Testing Glucose POC 220 Imaging Data Chest x-ray: Radiologist's Impresson: [address] [address] XRay Report Signed Patient: Guy Eisenberg MR#: [id number] : 1955 Acct:[id number] Age/Sex: 67 / M Date of Service: 06/05/22 Loc: ED Accession Number: [id number] ?? Procedure: XR chest 1V Ordering Provider: Dao Wild MD PROCEDURE:? XR CHEST 1V ? INDICATIONS:? chest pain ? TECHNIQUE:? One view of the chest was acquired.? ? COMPARISON:? [facility], [facility], XR CHEST 1V, 05/21/2022, 19:16. ? FINDINGS:? ? Surgical changes and devices:? None.? ? Lungs and pleura:? Lungs are clear.? No pleural effusions or pneumothorax.? ? Mediastinum:? Mediastinal contours appear normal.? Heart size is normal.? ? Bones and chest wall:? No suspicious bony lesions.? Overlying soft tissues appear unremarkable.? ? IMPRESSION:? No acute cardiopulmonary abnormalities or focal airspace disease. ? Dictated by: Amando Abarca M.D. on 06/05/2022 at 9:53 ? ? Approved by: Amando Abarca M.D. on 06/05/2022 at 9:54 ? ECG Data Interpretation: Atrial fibrillation with RVR. Rate 108 MDM Narrative Medical decision making narrative: Appropriate for discharge home. Patient states his dietary intake has not been very good since having COVID. Has been drinking fluids but not eating very much. Review of blood pressure and renal function and improvement with IV fluids clinically likely related to dehydration. Return precautions reviewed with patient. Agrees and desires discharge home. No CT head indicated this time. No neuro deficits. Discharge Plan Departure Patient Disposition: Home Clinical Impression: Acute kidney injury, Dehydration symptoms Instructions: DI for Dehydration -- Adult, Acute Kidney Injury, DI for Atrial Fibrillation Activity Restrictions/Additional Instructions: Keep well hydrated. Return if worse if any questions or concerns. See family doctor next week for re-evaluation. Continue home medications. It is important to keep well hydrated during illnesses/infection. COVID infection likely contributed to dehydration. Prescriptions: No Action allopurinol 300 MG tablet 300 mg PO QDAY Qty: 0 ramipril 10 MG capsule 10 mg PO BID Qty: 0 albuterol sulfate 90 mcg/actuation Hfa Aerosol Inhaler 1 puff INHALATION Q4-6H PRN (Reason: Dyspnea) Label Comments: 'I HAVEN'T NEEDED IT IN A LONG TIME carvedilol 12.5 mg Tablet 25 mg PO BID furosemide 20 mg Tablet 20 mg PO DAILY levothyroxine 0.075 mcg 75 mcg PO QAM atorvastatin tablet 40 mg PO BEDTIME metformin 500 mg tablet 500 mg PO BID epinephrine [EpiPen] 0.3 mg/0.3 mL Auto-Injector PRN (Reason: Anaphylaxis) Jardiance 25 mg Tablet 25 mg PO DAILY glimepiride 2 mg tablet 4 mg PO DAILY amitriptyline 10 mg tablet 20 mg PO BEDTIME (DME) Respironics Remstar CPAP Qty: 1 Dose Instruction: As directed Label Comments: Pressure: 6-12 cmH2O DME: [facility] Rx Instructions: As directed aspirin [Adult Aspirin Regimen] 81 mg tablet,delayed release (DR/EC) 81 mg PO DAILY Referrals: Lashaun Dawson MD [Primary Care Provider] - Visit Report Forms: Patient Portal/API
[2022-06-05 09:31] LABS: Add Manual Diff / Slide Review NO; Basophils Absolute Auto 100 /uL (0-100); Basophils Percent Auto 1.3 % (0-2); Eosinophils Absolute Auto 200 /uL (0-450); Eosinophils Percent Auto 5.3 % (2-4); Hematocrit 52.1 % (41-53); Hemoglobin 17.4 g/dL (13.5-17.5); Lymphocytes Absolute Auto 1500 /uL (1100-4500); Lymphocytes Percent Auto 32.7 % (25-40); Mean Corpuscular HGB Conc 33.4 % (30-36); Mean Corpuscular Hemoglobin 31.6 PG (26-34); Mean Corpuscular Volume 94.6 fL (80-100); Monocytes Absolute Auto 700 /uL (0-900); Monocytes Percent Auto 14.6 % (3-14); Neutrophils Absolute Auto 2100 /uL (1500-7000); Neutrophils Percent Auto 46.1 % (50-75); Platelet Count 167 X10^3/uL (150-400); Red Blood Cell Count 5.51 X10^6/uL (4.5-5.9); Red Cell Distribution Width 15.6 % (11.6-14.8); White Blood Cell Count 4.5 X10^3/uL (4.5-11.0)
[2022-06-05 09:43] LABS: Alanine Aminotransferase 36 IU/L (<50); Albumin 4.6 g/dL (3.5-5.0); Albumin Globulin Ratio 1.2 (1.0-2.8); Alkaline Phosphatase 92 U/L (38-126); Aspartate Aminotransferase 41 IU/L (17-59); BUN Creatinine Ratio 15.9 (6-22); Bilirubin Total 1.6 mg/dL (0.2-1.3); Blood Urea Nitrogen 23 mg/dL (9-20); Calcium 9.4 mg/dL (8.4-10.2); Carbon Dioxide 24 mmol/L (22-32); Chloride 100 mmol/L (98-107); Creatine Kinase 179 U/L (55-170); Estimated Glomerular Filt Rate 52 mL/min (>60); Glucose 238 mg/dL (80-110); INR 1.4 (0.9-1.3); Potassium 4.5 mmol/L (3.4-5.1); Prothrombin Time 16.4 SECONDS (10.1-12.7); Sodium 138 mmol/L (137-145); Total Protein 8.6 g/dL (6.3-8.2)
[2022-06-05] MEDS: SODIUM CHLORIDE 0.9% 1,000 ML 1000 ML IV ×2 (09:43→11:45)
[2022-06-05 09:45] LABS: HEMOLYSIS 57 (0-50)
[2022-06-05 09:52] LABS: NT-proBNP (BNP-Adult 18+) 813 pg/mL (<125)
[2022-06-05 09:55] LABS: Troponin I < 0.012 ng/mL (0.01-0.034)
[2022-06-05 09:58] LABS: CKMB % Relative Index 1.2 % (1.5-5.0); Creatine Kinase MB 2.13 ng/mL (<2.37); D Dimer < 215 ng/ml (<500)
[2022-06-05 09:59] LABS: PTT Partial Thromboplastin Tim 80 SECONDS (26-36); Procalcitonin 0.09 ng/mL (<0.5)
[2022-06-05 11:11] LABS: Appearance Urine UA CLEAR; Bilirubin Urine UA NEGATIVE (NEGATIVE); Color Urine UA YELLOW; Glucose Urine UA 2+ g/dL (Negative); Ketones Urine UA NEGATIVE (NEGATIVE); Leukocyte Esterase Urine UA NEGATIVE (NEGATIVE); Nitrite Urine UA NEGATIVE (Negative); Occult Blood Urine UA NEGATIVE (Negative); Protein Urine UA NEGATIVE (Negative); Specific Gravity Urine UA <=1.005 (1.000-1.035); Urobilinogen Urine UA 0.2 E.U./dL (0.2)
[2022-06-05 11:23] LABS: Bacteria Urine Few (2-10); Culture Indicated Urine Cult Not Indicated; RBC Urine None Seen (0-5/HPF); Squamous Epithelial Cell Urine 0-1 /HPF (0-5/HPF); WBC Urine 0-1/HPF (0-5/HPF)
== END 2022-06-05 14:07 | disposition home or self-care (01) ==
PROVIDERS: Emergency Provider Emergency Medicine; Family Provider Internal Medicine; PCP Internal Medicine
DX: E86.0 Dehydration (principal); N17.9 Acute kidney failure, unspecified; R07.9 Chest pain, unspecified; I48.0 Paroxysmal atrial fibrillation; Z79.01 Long term (current) use of anticoagulants; U07.1 COVID-19
CPT/HCPCS: 36415; 71045; 80053; 81001; 82550; 82553; 82962; 83605; 83880; 84145; 84484; 85025; 85379; 85610; 85730; 93005; 96360; 96361; 99284

== ENCOUNTER → 2022-06-19 10:32 | Outpatient (CLI) | payer OTHER, SELFPAY ==
[2021-01-20 13:18] VITALS: BMI 35.6
--- NOTE | 2022-06-19 10:33 | DI.CT.S_ITS ---
PROCEDURE: CT ANGIO ABD AORTA RUNOFF INDICATIONS: PERIPHERAL VASCLIAR DISEASE TECHNIQUE: After the administration of intravenous contrast, 2.5 mm sections acquired from T12 to the feet, with optional delayed image acquisition from the knees to the feet. 3-dimensional maximum intensity projection (MIP) coronal and sagittal reformats, and/or 3-dimensional volume rendering reformatting was then performed. For radiation dose reduction, the following was used: automated exposure control. Normal [facility] Ultrasound, US, US ARTERIAL LOWER EXTREMITY DOPPLER BILATERAL, 01/27/2022, 12:59. rseCOMPARISON: FINDINGS: Image quality: Excellent. Extravascular tissues: Lung bases are clear. Heart size is normal. Liver is normal in size and enhancement. Gallbladder is surgically absent . Biliary system is non dilated. Pancreas enhances normally. Spleen is normal in size and enhancement. No adrenal nodules. Kidneys are normal in size and enhancement, without hydronephrosis. Non opacified bowel loops demonstrate normal wall thickness and enhancement. No free fluid or air. No retroperitoneal or mesenteric adenopathy. No ventral hernias. Bladder wall thickness is normal. No inguinal hernias or adenopathy. No suspicious bony lesions. No vertebral body compression fractures. Abdominal aorta: The abdominal aorta demonstrates normal course and caliber throughout. The celiac axis, SMA, bilateral renal arteries and DWAYNE are widely patent. No aortic dissection or aneurysmal dilatation. Mild scattered atheromatous calcifications are noted. Right lower extremity: Mild atheromatous calcifications are present at the origin of the common iliac artery. No focal hemodynamically significant stenosis. The right lower extremity arteries demonstrate normal course and caliber throughout without hemodynamically significant stenosis, atheromatous plaque or atheromatous calcification. Left lower extremity: Mild atheromatous calcifications are present at the origin of the left common iliac artery. No focal stenosis. The left lower extremity arteries demonstrate otherwise wide patency without atheromatous plaque, calcification, or hemodynamically significant stenosis. IMPRESSION: 1. No evidence for peripheral vascular disease in the bilateral lower extremities. There is 3 vessel runoff bilaterally. 2. No acute intra-abdominal findings. Dictated by: Rhoda Goldberg M.D. on 06/19/2022 at 14:54 Approved by: Rhoda Goldberg M.D. on 06/19/2022 at 15:12
== END ==
PROVIDERS: Family Provider Internal Medicine; PCP Internal Medicine; Referring Provider Internal Medicine Cardiovascular Disease; Visit Provider Internal Medicine Cardiovascular Disease
DX: I73.9 Peripheral vascular disease, unspecified (principal); Z87.891 Personal history of nicotine dependence
CPT/HCPCS: 75635; Q9967

== ENCOUNTER → 2022-06-29 09:50 | Outpatient (CLI) | payer OTHER, SELFPAY ==
[2021-01-20 13:18] VITALS: BMI 35.6
[2022-06-29 10:48] LABS: COVID19 -Nasal RAPID POSITIVE (Negative)
--- NOTE | 2022-06-30 18:02 | DI.NM.S_ITS ---
DATE OF SERVICE: 06/29/2022 PROCEDURE: Pharmacological perfusion study. INDICATION: Chest pain with paroxysmal AFib, hypertension, hyperlipidemia. RADIOPHARMACEUTICAL: 24.9 millicurie technetium-99m Myoview IV was injected at stress and 26.2 millicurie technetium-99m Myoview IV was injected at rest. CARDIAC STRESS: The patient underwent pharmacological perfusion study under the supervision of an attending staff. The patient received IV Lexiscan, as per protocol. Baseline blood pressure 140/70 and heart rate 63. Baseline rhythm sinus. During stress, no convincing ischemic changes seen. No significant arrhythmias seen. The patient had minimal dyspnea during Lexiscan injection. No chest discomfort. RAW DATA: There is increased subdiaphragmatic activity. The patient's weight is 250 pounds. GATED STUDY: Resting LV ejection fraction 66 and stress LV ejection fraction 67 percent. Resting end-diastolic volume 86 mL. TID ratio 1.12, which is within normal limits. Lung/heart ratio 0.36, which is within normal limits. MYOCARDIAL PERFUSION SCAN: Stress supine, resting supine and stress prone images were compared to each other. Stress supine and resting supine images revealed small size, mildly decreased perfusion of inferior wall extending into the inferoapex, which got improved during stress prone images, however stress prone images remaining have mildly decreased perfusion of inferoapex. No reversible ischemia. CONCLUSION: I will call this study likely a normal myocardial perfusion study with evidence of diaphragmatic tissue attenuation artifact, which got significantly improved during stress prone images. There is element of persistent tissue attenuation artifact involving inferoapex, as well. There is normal wall motion. Left ventricular function is preserved. The patient had a perfusion study in June,, and at that time also had similar perfusion defect, which got improved during prone images. Overall, this is a low-risk myocardial perfusion scan. Guy Eisenberg - KOFI/ernie/dalia doc#: [id number]/job#: [id number] dd: 06/30/2022 16:49:00 dt: 06/30/2022 17:56:00 DICTATING MD/COPIES TO: Adenike Jacobsen MD COPIES MNE: CRISTA;
== END ==
PROVIDERS: Family Provider Internal Medicine; PCP Internal Medicine; Referring Provider Internal Medicine Cardiovascular Disease; Visit Provider Internal Medicine Cardiovascular Disease
DX: I48.0 Paroxysmal atrial fibrillation (principal); U07.1 COVID-19; I10 Essential (primary) hypertension; E78.5 Hyperlipidemia, unspecified; R07.9 Chest pain, unspecified; I73.9 Peripheral vascular disease, unspecified; Z87.891 Personal history of nicotine dependence
CPT/HCPCS: 78452; 87635; 93017; A9502; J2785

== ENCOUNTER 2023-07-18 11:55 | Emergency (ER) | payer OTHER, SELFPAY ==
[2021-01-20 13:18] VITALS: BMI 35.6
[2023-07-18] VITALS (22 sets, daily range): BP systolic 160–206; BP diastolic 66–88; PULSE 56–63; RESP 12–23; TEMP 36.4; O2SAT 94–99; BMI 34.9
--- NOTE | 2023-07-18 12:14 | DI.RAD.S_ITS ---
PROCEDURE: XR CHEST 1V INDICATIONS: chest pain TECHNIQUE: One view of the chest was acquired. COMPARISON: [facility], CR, XR CHEST 1V, 06/05/2022, 9:30. FINDINGS: Surgical changes and devices: None. Lungs and pleura: Lungs are clear. No pleural effusions or pneumothorax. Mediastinum: Mediastinal contours appear normal. Heart size is normal. Bones and chest wall: No suspicious bony lesions. Overlying soft tissues appear unremarkable. IMPRESSION: No acute cardiopulmonary findings Approved by: Doni Figueroa M.D. on 07/18/2023 at 12:03
[2023-07-18 12:28] LABS: Add Manual Diff / Slide Review NO; Basophils Absolute Auto 100 /uL (0-100); Basophils Percent Auto 1.2 % (0-2); Eosinophils Absolute Auto 200 /uL (0-450); Eosinophils Percent Auto 3.1 % (2-4); Hematocrit 44.8 % (41-53); Hemoglobin 15.2 g/dL (13.5-17.5); Lymphocytes Absolute Auto 1200 /uL (1100-4500); Lymphocytes Percent Auto 18.7 % (25-40); Mean Corpuscular HGB Conc 33.9 % (30-36); Mean Corpuscular Hemoglobin 32.1 PG (26-34); Mean Corpuscular Volume 94.5 fL (80-100); Monocytes Absolute Auto 500 /uL (0-900); Monocytes Percent Auto 8.2 % (3-14); Neutrophils Absolute Auto 4400 /uL (1500-7000); Neutrophils Percent Auto 68.8 % (50-75); Platelet Count 155 X10^3/uL (150-400); Red Blood Cell Count 4.73 X10^6/uL (4.5-5.9); White Blood Cell Count 6.5 X10^3/uL (4.5-11.0)
[2023-07-18 12:29] LABS: INR 1.3 (0.9-1.3); Prothrombin Time 15.4 SECONDS (10.1-12.7)
[2023-07-18 12:36] LABS: Alanine Aminotransferase 28 IU/L (<50); Albumin 4.5 g/dL (3.5-5.0); Albumin Globulin Ratio 1.5 (1.0-2.8); Alkaline Phosphatase 70 U/L (38-126); Aspartate Aminotransferase 29 IU/L (17-59); BUN Creatinine Ratio 14.4 (6-22); Bilirubin Total 1.3 mg/dL (0.2-1.3); Blood Urea Nitrogen 17 mg/dL (9-20); Calcium 10.1 mg/dL (8.4-10.2); Carbon Dioxide 23 mmol/L (22-32); Chloride 103 mmol/L (98-107); Creatine Kinase 135 U/L (55-170); Estimated Glomerular Filt Rate > 60 mL/min (>60); Glucose 160 mg/dL (80-110); HEMOLYSIS 32 (0-50); Lipase 131 U/L (23-300); Potassium 4.6 mmol/L (3.4-5.1); Sodium 137 mmol/L (137-145); Total Protein 7.5 g/dL (6.3-8.2)
[2023-07-18 12:37] LABS: PTT Partial Thromboplastin Tim 73 SECONDS (26-36)
[2023-07-18 12:47] LABS: Troponin I < 0.012 ng/mL (0.01-0.034)
--- NOTE | 2023-07-18 13:13 | ED.CHESTPAIN ---
HPI - Chest Pain General Chief Complaint: Chest Pain Stated Complaint: CHEST PAIN/high BP Time Seen by Provider: 07/18/23 12:08 Source: patient Mode of arrival: Ambulatory Limitations: no limitations History of Present Illness HPI narrative: Patient is a 68-year-old male history of atrial fibrillation on Pradaxa, diabetes, hypothyroid, hypertension presenting today with chest pain. He reports that he was pushing a shopping cart at the grocery store when he felt pressure and tightness in his chest. He felt both arms were heavy left greater than right. He is not felt anything like this before. He felt sweaty and nauseous at the same time. He maybe was short of breath. No nausea vomiting or abdominal pain. He is no lower extremity swelling. He reports that he has no history of coronary artery disease. He actually is supposed to see Dr. Bucio in 2 days. Related Data Home Medications Medication Instructions Recorded Confirmed allopurinol 300 mg tablet 300 mg PO QDAY ##0 12/29/10 04/23/22 ramipril 10 mg capsule 10 mg PO BID ##0 09/17/11 04/23/22 albuterol sulfate 90 mcg/actuation 1 puff inhalation Q4-6H PRN Dyspnea 08/14/18 04/23/22 aerosol inhaler atorvastatin 40 mg PO BEDTIME 08/14/18 04/23/22 carvedilol 12.5 mg tablet 25 mg PO BID 08/14/18 04/23/22 furosemide 20 mg tablet 20 mg PO DAILY 08/14/18 04/23/22 levothyroxine 75 mcg PO QAM 08/14/18 04/23/22 Respironics Remstar CPAP #1 ea 01/24/19 04/23/22 epinephrine 0.3 mg/0.3 mL PRN Anaphylaxis 10/08/20 04/23/22 injection, auto-injector (EpiPen) empagliflozin 25 mg tablet 25 mg PO DAILY 10/10/20 04/23/22 (Jardiance) amitriptyline 10 mg tablet 20 mg PO BEDTIME 10/20/21 04/23/22 glimepiride 2 mg tablet 4 mg PO DAILY 1 PM 10/20/21 04/23/22 aspirin 81 mg tablet,delayed 81 mg PO DAILY 04/23/22 04/23/22 release (Adult Aspirin Regimen) metformin 500 mg tablet 500 mg PO BID 04/23/22 04/23/22 Previous Rx's Medication Instructions Recorded amlodipine 2.5 mg tablet 2.5 mg PO DAILY #14 tabs 07/18/23 ramipril 10 mg capsule 20 mg (2 x 10 mg) PO BID #60 caps 07/18/23 Allergies Allergy/AdvReac Type Severity Reaction Status Date / Time bee venom protein (honey bee) Allergy Severe Anaphylaxis Verified 07/18/23 12:06 codeine Allergy Intermediate HIVES, Verified 07/18/23 12:06 SWELLING meloxicam Allergy Intermediate Rash Verified 07/18/23 12:06 methotrexate AdvReac Severe Gastrointestinal Verified 07/18/23 12:06 Upset Patient History Medical History Cervical arthritis with myelopathy Cervical radiculopathy Cervical stenosis of spinal canal Diabetes Diabetic peripheral neuropathy associated with type 2 diabetes mellitus Facet arthropathy, cervical Former smoker GERD (gastroesophageal reflux disease) Gout Hyperlipidemia Hypertension Hypothyroidism Inflammatory bowel disease Lumbar stenosis with neurogenic claudication Obesity (BMI 30-39.9) Obstructive sleep apnea Psoriasis Spinal stenosis Type 2 diabetes mellitus Surgical History History of appendectomy History of carpal tunnel release of both wrists History of cholecystectomy History of laparoscopic cholecystectomy (~2010) History of lumbar fusion (~1988) History of lumbar laminectomy (~1985) History of lumbar laminectomy (~2010) History of resection of small bowel S/P epidural steroid injection Status post cervical spinal fusion Social History marital status: number of children: 1 household members: spouse lives independently: Yes caregiver/support person: No 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 HEENT: Head atraumatic,EOMI, pupils reactive, face symmetric, moist mucous membranes CARDIOVASCULAR: Regular rate and rhythm without murmurs, rubs or gallops. RESPIRATORY: Breath sounds equal bilaterally, no wheezes rales or rhonchi. ABDOMEN: Soft, nontender. Normoactive bowel sounds all 4 quadrants. No guarding or rebound. EXTREMITIES: Normal range of motion, no clubbing or edema. Neurovascularly intact NEUROLOGICAL: Alert and oriented x4.Normal gait and speech. SKIN: Warm, dry, no laceration, no petechiae, no rashes or lesions. Course Orders Ordered: ED Orders 07/18/23 12:10 BNP [NT-proBNP (BNP-Adult 18+)] Stat Complete Blood Count AUTO DIFF Stat Comprehensive Metabolic Panel Stat D Dimer Stat Lipase Stat Magnesium Stat PTT Partial Thromboplastin Doug Stat Prothrombin Time INR Stat Troponin & CK Cardiac Panel Stat 07/18/23 12:14 XR chest 1V Stat 07/18/23 12:17 EKG-12 Lead Stat 07/18/23 13:45 Trop I [Troponin I] Stat 07/18/23 14:57 EKG-12 Lead Routine Vital Signs Vital signs: Vital Signs - 8 hr 07/18/23 11:59 07/18/23 12:12 07/18/23 12:15 Temperature 97.5 F L Pulse Rate 60 60 Respiratory Rate 20 19 Blood Pressure 201/84 H 206/88 H Pulse Oximetry 99 98 Oxygen Delivery Method Room Air 07/18/23 12:15 07/18/23 12:30 07/18/23 12:30 Temperature Pulse Rate 62 63 Respiratory Rate 16 23 Blood Pressure 189/66 H Pulse Oximetry 97 98 Oxygen Delivery Method 07/18/23 12:45 07/18/23 12:45 07/18/23 13:00 Temperature Pulse Rate 60 60 Respiratory Rate 15 14 Blood Pressure 176/79 H Pulse Oximetry 94 95 Oxygen Delivery Method 07/18/23 13:00 07/18/23 13:15 07/18/23 13:15 Temperature Pulse Rate 58 L Respiratory Rate 13 Blood Pressure 160/71 H 166/79 H Pulse Oximetry 97 Oxygen Delivery Method 07/18/23 13:30 07/18/23 13:30 07/18/23 13:47 Temperature Pulse Rate 59 L Respiratory Rate 15 Blood Pressure 165/82 H 171/77 H Pulse Oximetry 97 Oxygen Delivery Method 07/18/23 13:47 07/18/23 14:00 07/18/23 14:00 Temperature Pulse Rate 59 L 59 L Respiratory Rate 18 15 Blood Pressure 167/79 H Pulse Oximetry 98 98 Oxygen Delivery Method 07/18/23 14:15 07/18/23 14:15 07/18/23 14:30 Temperature Pulse Rate 59 L Respiratory Rate 15 Blood Pressure 165/81 H 164/79 H Pulse Oximetry 99 Oxygen Delivery Method 07/18/23 14:30 07/18/23 14:45 07/18/23 14:45 Temperature Pulse Rate 57 L 57 L Respiratory Rate 12 12 Blood Pressure 162/78 H Pulse Oximetry 97 95 Oxygen Delivery Method 07/18/23 15:00 07/18/23 15:00 07/18/23 15:16 Temperature Pulse Rate 61 Respiratory Rate 20 Blood Pressure 171/87 H 167/79 H Pulse Oximetry 99 Oxygen Delivery Method 07/18/23 15:16 Temperature Pulse Rate 58 L Respiratory Rate 14 Blood Pressure Pulse Oximetry 97 Oxygen Delivery Method Room Air MDM - Chest Pain Lab Data 07/18/23 12:10 07/18/23 12:10 Labs: Lab Results 07/18/23 07/18/23 Range/Units 12:10 13:45 WBC 6.5 (4.5-11.0) X10^3/uL RBC 4.73 (4.5-5.9) X10^6/uL Hgb 15.2 (13.5-17.5) g/dL Hct 44.8 (41-53) % MCV 94.5 (80-100) fL MCH 32.1 (26-34) PG MCHC 33.9 (30-36) % RDW 15.0 H (11.6-14.8) % Plt Count 155 (150-400) X10^3/uL Neut % (Auto) 68.8 (50-75) % Lymph % (Auto) 18.7 L (25-40) % Rhea % (Auto) 8.2 (3-14) % Eos % (Auto) 3.1 (2-4) % Baso % (Auto) 1.2 (0-2) % Neut # (Auto) 4400 (0497-2291) /uL Lymph # (Auto) 1200 (4854-6623) /uL Rhea # (Auto) 500 (0-900) /uL Eos # (Auto) 200 (0-450) /uL Baso # (Auto) 100 (0-100) /uL PT 15.4 H (10.1-12.7) SECONDS INR 1.3 (0.9-1.3) APTT 73 H* (26-36) SECONDS D-Dimer < 215 (<500) ng/ml Sodium 137 (137-145) mmol/L Potassium 4.6 (3.4-5.1) mmol/L Chloride 103 (98-107) mmol/L Carbon Dioxide 23 (22-32) mmol/L BUN 17 (9-20) mg/dL Creatinine 1.18 (0.66-1.25) mg/dL Estimated GFR > 60 (>60) mL/min BUN/Creatinine Ratio 14.4 (6-22) Glucose 160 H (80-110) mg/dL Calcium 10.1 (8.4-10.2) mg/dL Magnesium 2.0 (1.6-2.3) mg/dL Total Bilirubin 1.3 (0.2-1.3) mg/dL AST 29 (17-59) IU/L ALT 28 (<50) IU/L Alkaline Phosphatase 70 (38-126) U/L Total Creatine Kinase 135 (55-170) U/L Troponin I < 0.012 < 0.012 (0.01-0.034) ng/mL NT-Pro-B Natriuret Pep 117 (<125) pg/mL Total Protein 7.5 (6.3-8.2) g/dL Albumin 4.5 (3.5-5.0) g/dL Globulin 3.0 (1.7-4.1) g/dL Albumin/Globulin Ratio 1.5 (1.0-2.8) Lipase 131 (23-300) U/L Imaging Data Chest x-ray: Radiologist's Impression: PROCEDURE: XR CHEST 1V INDICATIONS: chest pain TECHNIQUE: One view of the chest was acquired. COMPARISON: [facility], CR, XR CHEST 1V, 06/05/2022, 9:30. FINDINGS: Surgical changes and devices: None. Lungs and pleura: Lungs are clear. No pleural effusions or pneumothorax. Mediastinum: Mediastinal contours appear normal. Heart size is normal. Bones and chest wall: No suspicious bony lesions. Overlying soft tissues appear unremarkable. IMPRESSION: No acute cardiopulmonary findings Approved by: Doni Figueroa M.D. on 07/18/2023 at 12:03 ECG Data Interpretation: EKG 1. Normal sinus rhythm rate 50 LA interval 118 QRS [address] changes EKG 2. Sinus rhythm rate 60 LA interval 148 QRS [address] changes similar to prior MDM Narrative Medical decision making narrative: Patient 68-year-old male history of diabetes atrial fibrillation hypertension hyperlipidemia presenting today with chest discomfort while pushing a grocery cart. He initially came in with his significantly elevated blood pressure 201/68. He is had no intervention done and blood pressure and heart rate have come down. He is not in AFib he is in sinus rhythm with his rate control. Blood work reviewed no leukocytosis no anemia no thrombocytopenia, elevated PTT 73 consistent with Pradaxa similar to previous, no electrolyte like abnormality negative troponin Patient has multiple risk factors for acute coronary artery disease. He did have a stress test almost exactly 1 year ago which was read as negative. However symptoms are still concerning. Although he has been chest pain-free for numerous hours with 2- troponins and no EKG changes 1600 Dr. Ulloa on-call cardiology updated patient's symptoms test results chest pain may have been from hypertension. Recommends increasing ramipril 20 mg b.i.d. and add amlodipine 2.5 mg. Can follow-up with cardiology as scheduled in 2 days. Discharge Plan Departure Patient Disposition: Home Clinical Impression: Hypertension, Chest pain Instructions: High Blood Pressure, DI for Chest Pain Activity Restrictions/Additional Instructions: *You have been diagnosed with chest pain, high blood pressure *What to do: At this time please follow-up with cardiology as scheduled on Wednesday. For now we are going to change your blood pressure medication this may or may not have contributed to your symptoms. *Continue to take medications as directed-> SAARS Change ramipril 20 mg twice a day Amlodipine 2.5 mg once daily *Follow up with your primary care provider in 2-3 days or call [phone] *Return to ER if you should have increasing chest pain sweating shortness of breath no palpitations or any new, worsening or concerning symptoms Prescriptions: New ramipril 10 mg capsule 20 mg PO BID Qty: 60 0RF amlodipine 2.5 mg tablet 2.5 mg PO DAILY Qty: 14 0RF No Action allopurinol 300 MG tablet 300 mg PO QDAY Qty: 0 ramipril 10 MG capsule 10 mg PO BID Qty: 0 albuterol sulfate 90 mcg/actuation Hfa Aerosol Inhaler 1 puff INHALATION Q4-6H PRN (Reason: Dyspnea) Patient Comments: 'I HAVEN'T NEEDED IT IN A LONG TIME carvedilol 12.5 mg Tablet 25 mg PO BID furosemide 20 mg Tablet 20 mg PO DAILY levothyroxine 0.075 mcg 75 mcg PO QAM atorvastatin tablet 40 mg PO BEDTIME metformin 500 mg tablet 500 mg PO BID epinephrine [EpiPen] 0.3 mg/0.3 mL Auto-Injector PRN (Reason: Anaphylaxis) Jardiance 25 mg Tablet 25 mg PO DAILY glimepiride 2 mg tablet 4 mg PO DAILY amitriptyline 10 mg tablet 20 mg PO BEDTIME (DME) Respironics Remstar CPAP Qty: 1 Dose Instruction: As directed Patient Comments: Pressure: 6-12 cmH2O DME: [facility] Rx Instructions: As directed aspirin [Adult Aspirin Regimen] 81 mg tablet,delayed release (DR/EC) 81 mg PO DAILY Referrals: Belinda Bucio DO [Physician] - Lashaun Dawson MD [Primary Care Provider] - Stand Alone Forms: Patient Portal/API
[2023-07-18 13:45] LABS: D Dimer < 215 ng/ml (<500)
[2023-07-18 14:04] LABS: NT-proBNP (BNP-Adult 18+) 117 pg/mL (<125)
[2023-07-18 14:14] LABS: Troponin I < 0.012 ng/mL (0.01-0.034)
== END 2023-07-18 16:24 | disposition home or self-care (01) ==
PROVIDERS: Emergency Provider Emergency Medicine; Family Provider Internal Medicine; PCP Internal Medicine
DX: I10 Essential (primary) hypertension (principal); R07.9 Chest pain, unspecified
CPT/HCPCS: 36415; 71045; 80053; 82550; 83690; 83735; 83880; 84484; 85025; 85379; 85610; 85730; 93005; 93010; 99284

== ENCOUNTER → 2023-10-05 09:01 | Outpatient (CLI) | payer OTHER, SELFPAY ==
[2021-01-20 13:18] VITALS: BMI 35.6
--- NOTE | 2023-10-05 09:02 | DI.ECHO.S_ITS ---
[facility] +---------+ : : [address] [place] : : : : [id number] : : : : Phone: [phone] Echocardiogram Report + + :Name: MARLEY PINON Study Date: 10/05/2023 Height: 71 in : :[facility] ReadingLocation: Weight: 245 lb : : Gender: Male BSA: 2.3 m2 : :: 1955 Age: 68 yrs BP: 131/74 mmHg: :Reason For Study: CHEST PAIN : :Ordering Physician: DEWEY, : :BELINDA Paz Performed By: Janina Rivas : :Referring: BELINDA BUCIO : + + Interpretation Summary The ejection fraction is estimated to be 60-65%. Diastolic parameters suggest probable normal left ventricular diastolic function and normal filling pressures. The right ventricle is normal in size and function. There is mild tricuspid regurgitation. The right ventricular systolic pressure is estimated to be at least 31 mmHg based on an estimated right atrial pressure of 3 mm Hg. Compared to the prior study dated 03/29/2022, no significant change. Procedure: A two-dimensional transthoracic echocardiogram with color flow and Doppler was performed. The study quality was technically adequate. Comparison is made with the echocardiogram of 03/29/2022. The patient was in sinus rhythm with heart rates between 58-65 bpm during the exam. Left Ventricle: The left ventricle is normal in size and wall thickness. The ejection fraction is estimated to be 60-65%. Diastolic parameters suggest probable normal left ventricular diastolic function and normal filling pressures. Right Ventricle: The right ventricle is normal in size and function. Atria: The left atrial size is normal. Right atrial size is normal. There is no Doppler evidence for an interatrial shunt. Mitral Valve: The mitral valve is normal in structure and function. There is trace mitral regurgitation. Aortic Valve: The aortic valve is trileaflet. The aortic valve opens well. There is no aortic valve stenosis. No aortic regurgitation is present. Tricuspid Valve: The tricuspid valve is normal. There is mild tricuspid regurgitation. The right ventricular systolic pressure is estimated to be at least 31 mmHg based on an estimated right atrial pressure of 3 mm Hg. Pulmonic Valve: The pulmonic valve leaflets are thin and pliable; valve motion is normal. There is trace pulmonic regurgitation. Great Vessels: The aortic root is normal size. The dimensions of the ascending aorta are normal. The IVC is of normal diameter and collapses greater than 50% with a sniff. This suggests a low right atrial pressure of 3 mm Hg. Pericardium/ Pleura There is no pericardial effusion. There is no pleural effusion. MMode/2D Measurements & Calculations LVIDd: 4.3 cm LVOT diam: 2.3 cm LVIDs: 3.1 cm Ao root diam: 3.3 cm FS: 27.5 % asc Aorta Diam: 3.1 cm EPSS: 0.94 cm Ao Arch Diam (Prox Trans): 2.3 cm IVSd: 0.90 cm LVPWd: 0.96 cm LV shaw. diameter/BSA (cm/m^2): 1.9 LV sys. diameter/BSA (cm/m^2): 1.4 LA A2 area: 17.9 cm2 RA long axis: 4.7 cm LA A4 area: 16.2 cm2 RA area: 13.7 cm2 LA length (vol): 5.5 cm RA vol: 33.8 ml LA vol: 44.8 ml RA : 14.7 ml/m2 LA vol index: 19.5 ml/m2 IVC diam: 1.4 cm RVD1 (basal): 3.3 cm RVD2 (mid): 2.9 cm TAPSE: 1.6 cm Doppler Measurements & Calculations Ao V2 max: 133.3 cm/sec LVOT Max David: 108.3 cm/sec Ao V2 mean: 97.8 cm/sec LV V1 max P.7 mmHg Ao max P.1 mmHg LV V1 VTI: 24.8 cm Ao mean P.1 mmHg NICOLE(I,D): 3.4 cm2 Ao V2 VTI: 31.6 cm NICOLE(V,D): 3.5 cm2 sev ratio: 0.78 NICOLE indexed to BSA (cm^2/m^2): 1.5 MV E max david: 82.3 cm/sec TR max david: 264.7 cm/sec MV A max david: 80.1 cm/sec TR max P.0 mmHg MV E/A: 1.0 PA V2 max: 93.7 cm/sec Med Peak E' David: 8.4 cm/sec PA V2 mean: 68.9 cm/sec E/E' med: 9.8 PA mean P.0 mmHg Lat Peak E' David: 6.3 cm/sec PA pr(Accel): 41.3 mmHg E/E' lat: 13.0 E/e' average: 11.4 MV dec time: 0.25 sec SV(LVOT): 106.8 ml Reading Physician:04:52 PM
== END ==
LOC: ECHO 09:02
PROVIDERS: Family Provider Internal Medicine; PCP Internal Medicine; Referring Provider Internal Medicine Cardiovascular Disease; Visit Provider Internal Medicine Cardiovascular Disease
DX: R07.9 Chest pain, unspecified (principal); I07.1 Rheumatic tricuspid insufficiency
CPT/HCPCS: 93306

== ENCOUNTER → 2025-01-16 14:04 | Outpatient (CLI) | payer OTHER, SELFPAY ==
[2021-01-20 13:18] VITALS: BMI 35.6
--- NOTE | 2025-01-16 | DI.RAD.S_ITS ---
PROCEDURE: XR SCAPULA RT INDICATIONS: Other chest pain TECHNIQUE: Two views of the scapula were acquired. COMPARISON: None. FINDINGS: Bones: Mildly displaced remote avulsion fracture of the distal clavicle appreciated Acromioclavicular and glenohumeral joints: Chronic acromioclavicular dislocation appreciated. Mild glenohumeral degeneration noted Soft tissues: There is calcification in the expected location of the clavicular insertion of the coracoacromial ligament. IMPRESSION: Chronic acromioclavicular dislocation. Remote avulsion fracture distal clavicle. Calcification in the expected location of the cortical clavicular ligament likely stigmata of old inflammation or trauma . Dictated by: Noam Murphy M.D. on 01/17/2025 at 16:49 Approved by: Noam Murphy M.D. on 01/17/2025 at 16:52
--- NOTE | 2025-01-16 | DI.RAD.S_ITS ---
PROCEDURE: XR RIBS RT MIN 3V W CXR 1V INDICATIONS: Other chest pain TECHNIQUE: 2 views of the ribs were acquired, along with a single view chest. COMPARISON: None. FINDINGS: Heart, mediastinum and pulmonary vascular: Heart is normal in size and configuration. Mediastinum is unremarkable. Pulmonary vascular is normal. Lungs: Minor bibasilar atelectasis noted Pleural spaces: Normal-no effusions or pneumothorax. Bones and soft tissues: Chronic right acromioclavicular dislocation appreciated with hypertrophy of the distal right clavicle most compatible with a malunified old fracture. Moderate left AC degeneration noted. Right ribs appear normal. No specific abnormality seen in the right sternoclavicular joint where a metallic marker has been placed IMPRESSION: No cardiopulmonary disease. Musculoskeletal findings as described. No specific abnormality in the region of the right sternoclavicular joint. For persistent or or worrisome symptoms regarding this region suggest chest CT Dictated by: Noam Murphy M.D. on 01/17/2025 at 16:46 Approved by: Noam Murphy M.D. on 01/17/2025 at 16:49
== END ==
PROVIDERS: Family Provider Internal Medicine; PCP Internal Medicine; Referring Provider Internal Medicine; Visit Provider Internal Medicine
DX: S42.031A Displaced fracture of lateral end of right clavicle, initial encounter for closed fracture (principal); M24.411 Recurrent dislocation, right shoulder; R07.89 Other chest pain; X58.XXXA Exposure to other specified factors, initial encounter
CPT/HCPCS: 71101; 73010